=== PATIENT | male | born 1935 | race Caucasian/White ===

== ENCOUNTER 2016-05-06 16:48 | Inpatient (IN) | payer MEDICARE, OTHER ==
[~2016-05-06] VITALS: Ht 182.9 cm; Wt 60.2 kg
[~2016-05-06 16:48] MED LIST: CIPR-9 PO; MIRA33504 PO; TAMS5CAP PO; Z.0.NO CURRENT MEDS
[2016-05-06 16:49] VITALS: BP 210/91; PULSE 92; RESP 24; TEMP 97.5; O2SAT 97
[2016-05-06] MEDS ORDERED: SOD PHOSPHATE/SOD BIPHOSPHATE (ADULT) ENEMA 133ML PR ONE (22:30)
[2016-05-06 22:40] VITALS: BP 196/88; PULSE 98; RESP 16; O2SAT 100
--- NOTE | 2016-05-06 22:44 | PD ---
HPI Chief Complaint: Complaint Time Seen by Provider: 22:25 Travel History International Travel<30 days: No Contact w/Intl Traveler<30days: No Traveled to known affect area: No History of Present Illness HPI This is a 81-year-old male who presents for evaluation of constipation, urinary retention. Symptoms of an ongoing for the past 5-6 days. He reports that occasionally some bowel fluid leaks beyond that he has had no solid bowel movements in the past several days. He has had no urinary output. He does endorse some suprapubic pain and distention secondary to the retention. He denies any fevers, chills, nausea or vomiting, chest pain, shortness of breath, dysuria. The patient was seen here yesterday for evaluation of these symptoms. At that point in time a Degroot catheter is placed and 1.5 L of urine was collected. CT of the abdomen and pelvis revealed a probable 4 mm distal right ureteral calculus with mild right hydronephrosis and prominence of the proximal ureter. There is also a large amount of stool in the distal colon indicating constipation. The patient was discharged with a prescriptions for MiraLAX, Cipro and Flomax however he has been unable to afford them. Symptoms have persisted and he has not had any bowel movements or urine output today which prompted her evaluation. He says that he was recently released from longterm and he has no insurance, no outpatient follow-up. He is currently on probation. He has no other complaints. PFSH Past Medical History Arthritis: Yes Asthma: No Autoimmune Disease: No Blood Disorders: No Heart Rhythm Problems: No High Cholesterol: Yes Chest Pain: Yes Congestive Heart Failure: No COPD: Yes Cerebrovascular Accident: No Diabetes: No Gastrointestinal Disorders: Yes (TROUBLE SWALLOWING - DYSPHAGIA) GERD: Yes Headaches: No Hepatitis: No Hiatal Hernia: Yes Hypertension: Yes Neurologic: No Respiratory: Yes (emphysema ) Myocardial Infarction: Yes ([id number]) Seizures: No Sickle Cell Disease: No Sleep Apnea: No Ulcer: Yes (ESOPHAGEAL ULCERS - 1992) Past Surgical History Abdominal Surgery: No AICD: No Cardiac Surgery: No Ear Surgery: No Endocrine Surgery: No Eye Surgery: No Genitourinary Surgery: No Gynecologic Surgery: No Oral Surgery: Yes (JAW REPAIR ) Pacemaker: No Thoracic Surgery: No Other Surgery: Yes (ULCERS REMOVED FROM ESOPHAGUS 1992, POLYPS REMOVED FROM COLON 1992) Social History Alcohol Use: Yes (HARD LIQUOR - 1/5 DAILY 10 YEARS AGO. NOW OCCASSIONALLY.) Tobacco Use: Yes (SMOKE CIGARRETTES 1 PPD X 30 YEARS - SMOKES 3 TO 4 CIGARETTES DAILY NOW.) Substance Use: No Allergies-Medications (Allergen,Severity, Reaction): Coded Allergies: No Known Allergies (Verified , 05/06/16) Reported Meds & Prescriptions Reported Meds & Active Scripts Active Miralax Powder (Polyethylene Glycol 3350 Powder) 17 Gm Powd 17 Gm PO DAILY Mix and dissolve one measuring cap-ful (17 grams) in water or juice. Cipro (Ciprofloxacin HCl) 500 Mg Tab 500 Mg PO BID 7 Days Flomax (Tamsulosin HCl) 0.4 Mg Cap 0.4 Mg PO HS Review of Systems Except as stated in HPI: all other systems reviewed are Neg Physical Exam Narrative GENERAL: Well-developed well-nourished male in no acute distress SKIN: Warm and dry. HEAD: Atraumatic. Normocephalic. EYES: Pupils equal and round. No scleral icterus. No injection or drainage. ENT: No nasal bleeding or discharge. Mucous membranes pink and moist. NECK: Trachea midline. No JVD. CARDIOVASCULAR: Regular rate and rhythm. No murmur appreciated. RESPIRATORY: No accessory muscle use. Clear to auscultation. Breath sounds equal bilaterally. GASTROINTESTINAL: Abdomen soft, there is some suprapubic distention with tenderness. No guarding. No CVA tenderness. Rectal examination reveals large fecal impaction in the rectal vault, some leakage of bowel fluid around the impaction. The impaction was partially disimpacted manually. MUSCULOSKELETAL: No obvious deformities. No edema. NEUROLOGICAL: Awake and alert. No obvious cranial nerve deficits. Motor grossly within normal limits. Normal speech. Data Data Last Documented VS Vital Signs Date Time Temp Pulse Resp B/P Pulse Ox O2 Delivery O2 Flow Rate FiO2 05/06/16 22:40 98 16 196/88 100 Room Air 05/06/16 16:49 97.5 Orders Fleets Enema (Adult) (Fleets Enema (Adul (05/06/16 22:30) Insert Temp Sensing Degroot Cath (05/06/16 22:21) Urinalysis - C+S If Indicated (05/06/16 22:25) Basic Metabolic Panel (Bmp) (05/06/16 22:29) Complete Blood Count With Diff (05/06/16 22:29) Abdomen, Kub Only (05/06/16 22:29) Sodium Chlor 0.9% 1000 Ml Inj (Ns 1000 M (05/06/16 23:00) MDM Medical Decision Making Medical Screen Exam Complete: Yes Emergency Medical Condition: Yes Medical Record Reviewed: Yes Differential Diagnosis Fecal impaction, constipation, urinary retention, obstructive uropathy, hydronephrosis, ureteral calculus Narrative Course 81-year-old male presents with 5-6 days of urinary retention, constipation, thorough workup performed yesterday revealing constipation, right 4 mm ureteral stone with hydronephrosis. He was unable to afford the medications that were prescribed. On examination he has a fecal impacted that was partially disimpacted manually. The patient will be given a fleets enema. The patient has obvious distention of the bladder on initial examination. Therefore Degroot catheter replaced. A KUB has been ordered as well as electrolytes, renal function, CBC. The patient will be reassessed after the administration of Fleet 's enema. After the placement of Degroot catheter over 1 L of dark red tinged urine was expressed. The patient reports symptomatic relief and his abdominal discomfort , distention. 2256: At the end of my shift the patient is being signed out to Dr. Brice pending lab work, KUB, enema, plan is for discharge with outpatient follow-up to urology versus admission for observation. Neri Macedo May 06, 2016 22:44
[2016-05-06] MEDS ORDERED: SODIUM CHLOR 0.9% 1000 ML INJ 1,000 ML IV ONE (23:00)
[2016-05-06 23:11] VITALS: BP 158/76; PULSE 98; RESP 16; O2SAT 100
[2016-05-06 23:14] LABS: AUTOMATED NEUTROPHIL # 14.9 TH/MM3 (1.8-7.7); BACTERIA, URINE OCC /hpf; BASOPHIL % 0.2 % (0.0-2.0); BLOOD, URINE LARGE (NEG); COMMENT (UR) CULTURE INDICATED; CULTURE IF INDICATED CULTURE INDICATED; GLUCOSE,URINE TRACE mg/dL (NEG); HEMATOCRIT 35.9 % (39.0-51.0); HEMO FLAGS DIFF FINAL; KETONE, URINE NEG (NEG); LYMPH % 10.1 % (9.0-44.0); LYMPHOCYTE # 1.9 TH/MM3 (1.0-4.8); MEAN CELL VOLUME 84.1 FL (80.0-100.0); MEAN CORPUSCULAR HEMOGLOBIN 28.2 PG (27.0-34.0); MEAN CORPUSCULAR HGB CONC 33.5 % (32.0-36.0); MONO % 9.9 % (0.0-8.0); NEUT % 79.8 % (16.0-70.0); NITRITE,URINE NEG (NEG); PLATELET COUNT 232 TH/MM3 (150-450); RED BLOOD COUNT 4.27 MIL/MM3 (4.50-5.90); RED CELL DISTRIBUTION WIDTH 14.4 % (11.6-17.2); URINE COLOR RED (YELLW/STRAW); WHITE BLOOD COUNT 18.7 TH/MM3 (4.0-11.0)
[2016-05-06 23:29] LABS: BICARBONATE 21.5 MEQ/L (21.0-32.0); POTASSIUM 4.4 MEQ/L (3.5-5.1)
--- NOTE | 2016-05-06 23:36 | RADRPT ---
EXAM DATE/TIME: 05/06/2016 23:22 [facility] COMPARISON: CT ABDOMEN & PELVIS W/O CONTRAST, May 06, 2016, 4:41. INDICATIONS : Right flank pain from known right ureteral calculus. MEDICAL HISTORY : Hypertension. Cardiovascular disease. Gastroesophageal reflux disease. SURGICAL HISTORY : CABG. Hip arthroplasty ENCOUNTER: Subsequent ACUITY: 1 day PAIN SCORE: 8/10 LOCATION: Right flank FINDINGS: Supine view of the abdomen was performed. The abdominal bowel gas pattern is normal. No abnormal ma sses, calcifications, or organomegaly is seen. The patient is status post right hip arthroplasty. The bony structures are otherwise intact. CONCLUSION: No definite renal or ureteral calculi identified. Reji Ballesteros MD on May 06, 2016 at 23:33 Board Certified Radiologist. This report was verified electronically.
[2016-05-06] MEDS ORDERED: cefTRIAXone INJ 1,000 MG in SODIUM CHLORIDE 0.9% INJ 100 ML IV ONE (23:45)
--- NOTE | 2016-05-06 23:45 | PD ---
Physical Exam Narrative GENERAL: Well-nourished, well-developed patient. SKIN: Warm and dry. HEAD: Normocephalic and atraumatic. EYES: No injection or drainage. ENT: No nasal drainage noted. NECK: Supple, trachea midline. CARDIOVASCULAR: Regular rate and rhythm RESPIRATORY:no increased effort. No accessory muscle use. NEUROLOGICAL: Awake and alert. Moves all extremities. Normal speech. Data Data Last Documented VS Vital Signs Date Time Temp Pulse Resp B/P Pulse Ox O2 Delivery O2 Flow Rate FiO2 05/06/16 23:11 98 16 158/76 100 Room Air 05/06/16 16:49 97.5 Orders Fleets Enema (Adult) (Fleets Enema (Adul (05/06/16 22:30) Urinalysis - C+S If Indicated (05/06/16 22:25) Basic Metabolic Panel (Bmp) (05/06/16 22:29) Complete Blood Count With Diff (05/06/16 22:29) Abdomen, Kub Only (05/06/16 22:29) Sodium Chlor 0.9% 1000 Ml Inj (Ns 1000 M (05/06/16 23:00) Urinary Catheter Insert/Apply (05/06/16 22:58) Urine Culture (05/06/16 22:50) Blood Culture (05/06/16 23:41) Ceftriaxone Inj (Rocephin Inj) (05/06/16 23:45) Lactic Acid (05/06/16 23:42) Admit Order (Ed Use Only) (05/06/16 23:55) Labs Laboratory Tests Test 05/06/16 05/06/16 22:50 23:35 White Blood Count 18.7 TH/MM3 Red Blood Count 4.27 MIL/MM3 Hemoglobin 12.0 GM/DL Hematocrit 35.9 % Mean Corpuscular Volume 84.1 FL Mean Corpuscular Hemoglobin 28.2 PG Mean Corpuscular Hemoglobin 33.5 % Concent Red Cell Distribution Width 14.4 % Platelet Count 232 TH/MM3 Mean Platelet Volume 10.0 FL Neutrophils (%) (Auto) 79.8 % Lymphocytes (%) (Auto) 10.1 % Monocytes (%) (Auto) 9.9 % Eosinophils (%) (Auto) 0.0 % Basophils (%) (Auto) 0.2 % Neutrophils # (Auto) 14.9 TH/MM3 Lymphocytes # (Auto) 1.9 TH/MM3 Monocytes # (Auto) 1.9 TH/MM3 Eosinophils # (Auto) 0.0 TH/MM3 Basophils # (Auto) 0.0 TH/MM3 CBC Comment DIFF FINAL Differential Comment Urine Color RED Urine Turbidity HAZY Urine pH 6.0 Urine Specific [place] 1.010 Urine Protein 100 mg/dL Urine Glucose (UA) TRACE mg/dL Urine Ketones NEG mg/dL Urine Occult Blood LARGE Urine Nitrite NEG Urine Bilirubin NEG Urine Urobilinogen LESS THAN 2.0 MG/DL Urine Leukocyte Esterase SMALL Urine RBC /hpf Urine WBC 34 /hpf Urine Amorphous Sediment RARE Urine Bacteria OCC /hpf Microscopic Urinalysis Comment CULTURE INDICATED Sodium Level 132 MEQ/L Potassium Level 4.4 MEQ/L Chloride Level 102 MEQ/L Carbon Dioxide Level 21.5 MEQ/L Anion Gap 9 MEQ/L Blood Urea Nitrogen 16 MG/DL Creatinine 0.95 MG/DL Estimat Glomerular Filtration 76 ML/MIN Rate Random Glucose 170 MG/DL Calcium Level 9.0 MG/DL Lactic Acid Level 1.2 mmol/L MDM Supervised Visit with JAIR: Yes Interpretation(s) CBC & BMP Diagram 05/06/16 22:50 kub no stone noted ua with signs of infection Narrative Course I, Dr. felton, have reviewed the advance practice practitioner's documentation and am in agreement, met with the patient face to face, made the diagnosis, and the medical decision making was done by me. *My assessment and Findings: 81-year-old male presents with continued urinary retention and constipation and unable to fill his medications. Workup reveals elevated white count and persistent infection. Cultures and lactate added on. He will be given IV antibiotics. We'll place in observation given age and early sepsis to make sure antibiotic is appropriate, patient had over a liter with Degroot placed that is grossly bloody, patient updated and agrees to admit Sepsis Criteria SIRS Criteria (2 or more): Heart rate over 90, WBC > 46624, < 4000 or > 10% bands Sepsis Criteria (SIRS+source): Infect source susp/known Physician Communication Physician Communication dr rivero agrees to admit Diagnosis Primary Impression: Sepsis Additional Impressions: UTI (urinary tract infection) Urinary retention Constipation Hematuria Kidney stone Admitting Information Admitting Physician Requests: Admit Beverley Felton MD May 06, 2016 23:45 Additional Impressions: UTI (urinary tract infection) Urinary retention Constipation Hematuria Kidney stone Admitting Information Admitting Physician Requests: Admit Beverley Felton MD May 06, 2016 23:45
[2016-05-07] MEDS ORDERED: SODIUM CHLORIDE 0.9% FLUSH 5 ML FLUSH FLUSH PRN (00:15)
[2016-05-07] MEDS ORDERED: BISACODYL EC 5 MG TABEC PO PRN (00:15)
[2016-05-07] MEDS ORDERED: NALOXONE HCL 0.4 MG/ML AMP IV PRN (00:15)
[2016-05-07] MEDS ORDERED: METO25TA3 PO (00:25)
[2016-05-07] MEDS ORDERED: METF500T PO (00:25)
[2016-05-07] MEDS ORDERED: GLUCAGON 1 MG/ML VIAL OTHER PRN (02:00)
[2016-05-07] MEDS ORDERED: DEXTROSE 50% IN WATER 50 ML VIAL(D50) IV PUSH PRN (02:00)
[2016-05-07 02:30] VITALS: BP 170/77; PULSE 90; RESP 16; O2SAT 100
[2016-05-07 04:17] VITALS: BP 167/76; PULSE 97; RESP 16; TEMP 99.4; O2SAT 99
[2016-05-07] MEDS: INSULIN ASPART SUPPLEMENTAL SCALE SQ SCH ×4 (05:43→21:00)
--- NOTE | 2016-05-07 06:10 | HHI.HP ---
[facility] Primary [facility] Physician Unknown Admission Diagnosis sepsis, uti, urinary retention Diagnoses: Chief Complaint: CANNOT urinate, cannot make bowel movements Travel History International Travel<30 Days: No Contact w/Intl Traveler <30 Da: No Traveled to Known Affected Are: No Sepsis Criteria SIRS Criteria (2 or more): Heart rate over 90, WBC > 19878, < 4000 or > 10% bands Sepsis Criteria (SIRS+source): Infect source susp/known Criteria Outcome: Meets sepsis criteria History of Present Illness History from patient, ER physician communication, interview of medical records. Patient reported that for the past 6 days, he really was not able to urinate well. He was also constipated for 6 days. He reports he came to emergency room the day before yesterday and Degroot catheter was placed. However he reports that this catheter was removed prior to him leaving. Last night, patient returns to emergency room without a Degroot catheter. He was complaining of urinary retention and constipation. Therefore a new Degroot catheter was placed in ER. As per ER report and on review of medical records, patient was at our emergency room on religion instructor of May 06, 2016. He did have a CT imaging studies done which revealed obstructive uropathy with renal stones. He also had Degroot catheter placed after multiple attempts and did have hematuria then because of this traumatic Degroot. He was discharged home with a follow-up urology appointment. He was also treated for constipation at that time with laxatives. Patient states that he never had similar symptoms. He reports he did have colonoscopy previously but he cannot remember one or the results of it. He thinks that there was some abnormalities. He reports he was in half-way for the past 8 or 9 years. He just got out of half-way last month. Patient himself denies fever at home. However is noted to have low-grade fever here with leukocytosis, tachycardia. Review of Systems Constitutional: COMPLAINS OF: Weight loss, DENIES: Diaphoretic episodes, Fatigue, Fever, Weight gain, Chills, Dizziness Endocrine: DENIES: Heat/cold intolerance Eyes: DENIES: Blurred vision, Eye pain Respiratory: COMPLAINS OF: Apneas, DENIES: Cough, Snoring, Wheezing, Hemoptysis, Sputum production, Shortness of breath Cardiovascular: COMPLAINS OF: Claudication, DENIES: Chest pain, Palpitations, Syncope, Dyspnea on Exertion, PND, Lower Extremity Edema, Orthopnea Gastrointestinal: DENIES: Abdominal pain, Black stools, Bloody stools, Constipation, Diarrhea, Nausea, Vomiting Musculoskeletal: COMPLAINS OF: Joint pain, Back pain, Neck pain, DENIES: Muscle aches, Stiffness, Joint Swelling Neurologic: DENIES: Abnormal gait, Headache, Localized weakness, Paresthesias, Speech Problems, Tremor Psychiatric: COMPLAINS OF: Anxiety, Confusion Past Family Social History Past Medical History Hypertension Diabetes Hyperlipidemia COPD Cardiac valve Replacementpatient does not know what valve. Chronic kidney diseasestage III CADby angiogram findings in 2003. Patient was advised for bypass at that time per notes. However patient states he only had felt replacement. He is not aware of bypass surgeries. Past Surgical History Cardiac valve replacements Right hip replacement Reported Medications Patient's medications listed in EMR reviewed. Allergies: Coded Allergies: No Known Allergies (Verified , 05/06/16) Family History Family history in mother with lung cancer Social History Denies any alcohol abuse or drug abuse. He quit about 6 months before getting released from half-way. He however restarted picking up smoking. Patient is not taking any medications at home. Physical Exam Vital Signs Vital Signs Date Time Temp Pulse Resp B/P Pulse Ox O2 Delivery O2 Flow Rate FiO2 05/07/16 04:17 99.4 97 16 167/76 99 05/07/16 02:30 90 16 170/77 100 Room Air 05/06/16 23:11 98 16 158/76 100 Room Air 05/06/16 22:40 98 16 196/88 100 Room Air 05/06/16 16:49 97.5 92 24 210/91 97 Room Air Physical Exam GENERAL: This is a well-nourished, well-developed patient, in no apparent distress. SKIN: No rashes, ecchymoses or lesions. Cool and dry. HEAD: Atraumatic. Normocephalic. No temporal or scalp tenderness. EYES: No scleral icterus. No injection or drainage. ENT: Nose without bleeding, purulent drainage or septal hematoma. Airway patent. NECK: Trachea midline. No JVD CARDIOVASCULAR: Regular rate and rhythm without murmurs, gallops, or rubs. RESPIRATORY: Clear to auscultation. Breath sounds equal bilaterally. No wheezes , rales, or rhonchi. GASTROINTESTINAL: Abdomen soft, non-tender, nondistended. No guarding. MUSCULOSKELETAL: Extremities without clubbing, cyanosis, or edema. No calf tenderness. NEUROLOGICAL: Awake and alert.. Normal speech. Laboratory Laboratory Tests Test 05/06/16 05/06/16 22:50 23:35 White Blood Count 18.7 Red Blood Count 4.27 Hemoglobin 12.0 Hematocrit 35.9 Mean Corpuscular Volume 84.1 Mean Corpuscular Hemoglobin 28.2 Mean Corpuscular Hemoglobin 33.5 Concent Red Cell Distribution Width 14.4 Platelet Count 232 Mean Platelet Volume 10.0 Neutrophils (%) (Auto) 79.8 Lymphocytes (%) (Auto) 10.1 Monocytes (%) (Auto) 9.9 Eosinophils (%) (Auto) 0.0 Basophils (%) (Auto) 0.2 Neutrophils # (Auto) 14.9 Lymphocytes # (Auto) 1.9 Monocytes # (Auto) 1.9 Eosinophils # (Auto) 0.0 Basophils # (Auto) 0.0 CBC Comment DIFF FINAL Differential Comment Urine Color RED Urine Turbidity HAZY Urine pH 6.0 Urine Specific [place] 1.010 Urine Protein 100 Urine Glucose (UA) TRACE Urine Ketones NEG Urine Occult Blood LARGE Urine Nitrite NEG Urine Bilirubin NEG Urine Urobilinogen LESS THAN 2.0 Urine Leukocyte Esterase SMALL Urine RBC Urine WBC 34 Urine Amorphous Sediment RARE Urine Bacteria OCC Microscopic Urinalysis Comment CULTURE INDICATED Sodium Level 132 Potassium Level 4.4 Chloride Level 102 Carbon Dioxide Level 21.5 Anion Gap 9 Blood Urea Nitrogen 16 Creatinine 0.95 Estimat Glomerular Filtration 76 Rate Random Glucose 170 Calcium Level 9.0 Lactic Acid Level 1.2 Date/Time Procedure Status Source Growth 05/06/16 23:55 Aerobic Blood Culture Received Blood Peripheral Pending 05/06/16 23:55 Anaerobic Blood Culture Received Blood Peripheral Pending 05/06/16 22:50 Urine Culture Received Urine Clean Catch Pending Result Diagram: 05/06/16224905/06/16 225 Imaging Last 72 hours Impressions Abdomen X-Ray 05/06/162228 Signed Impressions: Service Date/Time: Friday, May 06, 2016 23:22 - CONCLUSION: No definite renal or ureteral calculi identified. Reji Ballesteros MD Last 48 hours Impressions Abdomen X-Ray 05/06/16 [id number] Signed Impressions: Service Date/Time: Friday, May 06, 2016 23:22 - CONCLUSION: No definite renal or ureteral calculi identified. Reji Ballesteros MD Assessment and Plan Problem List: (1) Sepsis ICD Code: A41.9 Status: Acute (2) UTI (urinary tract infection) ICD Code: N39.0 Status: Acute (3) Urinary retention ICD Code: R33.9 Status: Acute (4) Constipation ICD Code: K59.00 Status: Acute (5) Hematuria ICD Code: R31.9 Status: Acute (6) Kidney stone ICD Code: N20.0 Status: Acute (7) Kidney cyst, acquired ICD Code: N28.1 Status: Acute Assessment and Plan Impression: Acute urinary retentionlikely due to obstructive uropathy from renal stone 4 mm distal right ureteral stone above UVJ.With mild hydronephrosis. Bilateral renal cyst extending of the lower pole of the kidneys. Hematuriatraumatic Degroot likely Severe constipation UTI. Sepsisby criteria Hypertension Diabetes Hyperlipidemia COPD Cardiac valve Replacementpatient does not know what valve. CADby angiogram findings in 2003. Patient was advised for bypass at that time per notes. However patient states he only had felt replacement. He is not aware of bypass surgeries. Plan: Degroot catheter was placed. Urology consult. Flomax. Patient received Rocephin in ER. Continue Rocephin 1 g IV every 12 hours. Next and will follow-up urine culture results. Follow blood culture results. Nothing by mouth. D5 half normal saline at 84 cc per hour. We'll monitor fingersticks. Watch for fluid overload. Treat constipation with laxatives. Would consult GI for severe constipation and also possibly workup for weight loss with this constipation. Patient reports of abnormal colonoscopy previously. DVT prophylaxiswith SCD. Discussed Condition With Patient, ER physician, patient's nurse Physician Certification 2 Midnight Certification Type: Admission for Inpatient Services Order for Inpatient Services The services are ordered in accordance with Medicare regulations or non- Medicare payer requirements, as applicable. In the case of services not specified as inpatient-only, they are appropriately provided as inpatient services in accordance with the 2-midnight benchmark. Estimated LOS (days): 2 days is the estimated time the patient will need to remain in the hospital, assuming treatment plan goals are met and no additional complications. Post-Hospital Plan: Home Arvind Milian MD May 07, 2016 06:10
[2016-05-07] MEDS ORDERED: SOD PHOSPHATE/SOD BIPHOSPHATE (ADULT) ENEMA 133ML PR ONE (06:15)
[2016-05-07] MEDS ORDERED: DEXT 5%-NACL 0.45% 1000 ML INJ 1,000 ML IV SCH (07:15)
[2016-05-07 08:12] VITALS: BP 163/79; PULSE 108; RESP 20; TEMP 96.4; O2SAT 96
[2016-05-07] MEDS: cefTRIAXone INJ 1,000 MG in SODIUM CHLORIDE 0.9% INJ 100 ML IV SCH ×2 (08:39→20:00)
[2016-05-07] MEDS: SODIUM CHLORIDE 0.9% FLUSH 5 ML FLUSH FLUSH SCH ×2 (09:00→20:00)
[2016-05-07 09:30] VITALS: PULSE 112
[2016-05-07 12:33] VITALS: BP 148/76; PULSE 90; RESP 20; TEMP 97.9; O2SAT 96
--- NOTE | 2016-05-07 16:05 | RADRPT ---
EXAM DATE/TIME: 05/07/2016 14:52 [facility] COMPARISON: No previous studies available for comparison. INDICATIONS : CT showed hydronephrosis. MEDICAL HISTORY : Chronic obstructive pulmonary disease. Hypercholesterolemia. Hypertension. Emphysema. Dysphagia. Esop hageal ulcers. Hiatal hernia. Gastroesophageal reflux disease. Kidney stones. Arthritis. Diabetes. Th orasic degenerative joint disease. Anxiety. SURGICAL HISTORY : Right hip replacement. ENCOUNTER: Initial ACUITY: 2 days PAIN SCORE: 0/10 LOCATION: Bilateral flank MEASUREMENTS: RIGHT KIDNEY: 10.4 x 5.3 x 4.2 cm LEFT KIDNEY: 9.5 x 4.5 x 4.8 cm FINDINGS: RIGHT KIDNEY: Renal cortex is normal in thickness and echotexture. No hydronephrosis, stone, or mass. There is a cyst along the lower pole measuring 2.2 cm. There is a cyst along the upper pole measuring 1.9 cm. LEFT KIDNEY: Renal cortex is normal in thickness and echotexture. No hydronephrosis, stone, or mass. There is a cyst along the lower pole measuring 1.5 cm. BLADDER: Decompressed. Degroot catheter in place. CONCLUSION: 1. No evidence of hydronephrosis. 2. Bilateral benign-appearing renal cysts. Juancho Carson MD on May 07, 2016 at 16:02 Board Certified Radiologist. This report was verified electronically.
--- NOTE | 2016-05-07 17:07 | MB ---
cc: JOSHUA JOHNSTON MD DATE OF CONSULTATION 05/07/16 REASON FOR CONSULTATION 1. Urinary retention 2. Renal cysts. 3. Possible right ureteral stone. HISTORY OF PRESENT ILLNESS The patient is a 81-year-old male who came to the emergency room yesterday evening with inability to urinate for the last 6 days. He came into the emergency room the day before last with the same complaints and had a traumatic Degroot catheter was placed. His bladder was drained and the catheter was removed. However, over the course of the next 24 hours he had lower abdominal pain and tried to start his stream but could not. He would just dribble from time to time. He came back to the ER last night where catheter was then replaced and approximate 1.5 liters of urine was drained. He also has developed severe constipation over the last six days which required him to be manually disimpacted. In discussion with Mr. Meneses, he states that he has had some trouble urinating over the last couple years. He has nocturia about four to five times, weak stream and occasional dysuria. He denies history of hematuria or incontinence. He denies ever taking medications for his urinary symptoms in the past. On his first presentation to the emergency room two days ago, he had a CT abdomen and pelvis without contrast done which showed a severely distended rectum as well as a hyperdense cyst on his left kidney approximately 1.5 cm in size as well as dilated extrarenal pelvis on the right side with a questionable 4 mm distal right ureteral stone and the above mentioned distended bladder. He denies history of kidney stones in the past. He currently denies any flank pain, fevers or chills at this time. Catheter is currently in place and draining light yellow urine. He denies history of prostate cancer. He denies nausea and vomiting this time. He did receive a Fleets enema last night and has had a small bowel movement, but he has not had a bowel movement today. REVIEW OF SYSTEMS See HPI. Otherwise, a 12-point review of systems was performed and otherwise negative. PAST MEDICAL HISTORY 1. Hypertension, 2. Diabetes, 3. Hyperlipidemia 4. COPD 5. Urinary retention 6. ____ 7. Renal cyst. PAST SURGICAL HISTORY 1. Status post cardiac valve replacement 2. Status post right hip replacement. ALLERGIES NO KNOWN DRUG ALLERGIES. FAMILY HISTORY Mom had lung cancer. Denies history of urolithiasis or family history of prostate cancer. SOCIAL HISTORY Denies any alcohol or illicit drug use. He uses tobacco. He recently just got out of longterm. MEDICATIONS Home include 1. Metformin 500 mg p.o. daily. 2. Metoprolol 25 mg p.o. b.i.d. PHYSICAL EXAMINATION VITAL SIGNS: Temperature 97.9, pulse 90, respiratory rate 20, blood pressure 148/76, satting 96% on room air. GENERAL: He is alert and oriented x3. No apparent distress. He appears older than his stated age. HEAD: Normocephalic, atraumatic. EYES: No scleral icterus. Extraocular muscles intact. NECK: Supple. Trachea is midline. LUNGS: Clear to auscultation bilaterally HEART: Regular rhythm. No murmurs or gallops or rubs. ABDOMEN: Soft, nontender, mildly distended. No peritoneal signs. GENITOURINARY:: His penis is uncircumcised. Testes descended bilaterally. Normal size and consistency. Catheter is draining nura colored urine. Prostate exam not indicated at this time. EXTREMITIES: Nontender, no clubbing, cyanosis or edema. MUSCULOSKELETAL: Full range of motion times four extremities. SKIN: No ulcers or rashes. PSYCHIATRIC: Appears anxious. LABORATORY DATA White count 18.7, hemoglobin 12.0, hematocrit 35.9, platelet count 232. Sodium 1.32, potassium 4.4, chloride 102, bicarb 21.5 BUN 16, creatinine 0.95, glucose 170. His urine was large occult blood, small leukocyte esterase. IMAGING STUDIES CT abdomen and pelvis without contrast on 05/05/2016 showed a severely distended rectum and moderately distended bladder with a 1.5 cm posterior left hyperdense renal cyst as well as a dilated extrarenal pelvis with a questionable 4 mm stone in his right distal ureter. ASSESSMENT AND PLAN The patient is a 81-year-old male who presents with severe constipation and acute urinary retention with a 1.5 cm left renal cyst and questionable ____ distal ureter calculus. PLAN Continue the Degroot catheter for now, minimum x1 week and until his constipation is resolved. Continue Flomax 0.4 mg daily. We will obtain a renal ultrasound to further characterize the cyst and to evaluate for hydronephrosis on the right side. He can then be of void trialed on an outpatient basis. Thank you for this consultation. Please call if any questions. MD ANNE MARIE Carrion/ /2:14 PM /4:42 PM
[2016-05-07] MEDS ORDERED: MAGNESIUM HYDROXIDE SUSP 30 ML CUP PO ONE (18:00)
[2016-05-07 20:00] VITALS: BP 182/74; PULSE 77; RESP 22; TEMP 98.3; O2SAT 97
[2016-05-07] MEDS: TAMSULOSIN HCL 0.4 MG CAP PO SCH (20:00)
[2016-05-07] MEDS ORDERED: MINERAL OIL ENEMA 118 ML BTL RECTAL ONE (21:45)
[2016-05-07] MEDS ORDERED: DICYCLOMINE HCL 20 MG TAB PO ONE (22:00)
[2016-05-08] MEDS: INSULIN ASPART SUPPLEMENTAL SCALE SQ SCH ×4 (05:36→21:00)
[2016-05-08 06:13] VITALS: BP 160/75; PULSE 85; RESP 20; TEMP 96.5; O2SAT 97
[2016-05-08 06:59] LABS: AUTOMATED NEUTROPHIL # 7.1 TH/MM3 (1.8-7.7); BASOPHIL % 0.3 % (0.0-2.0); EOSINOPHIL # 0.1 TH/MM3 (0-0.4); EOSINOPHIL % 0.8 % (0.0-4.0); HEMATOCRIT 33.1 % (39.0-51.0); HEMO FLAGS DIFF FINAL; LYMPH % 20.1 % (9.0-44.0); LYMPHOCYTE # 2.1 TH/MM3 (1.0-4.8); MEAN CELL VOLUME 84.2 FL (80.0-100.0); MEAN CORPUSCULAR HEMOGLOBIN 28.4 PG (27.0-34.0); MEAN CORPUSCULAR HGB CONC 33.8 % (32.0-36.0); MONO % 11.4 % (0.0-8.0); NEUT % 67.4 % (16.0-70.0); PLATELET COUNT 203 TH/MM3 (150-450); RED BLOOD COUNT 3.93 MIL/MM3 (4.50-5.90); RED CELL DISTRIBUTION WIDTH 14.4 % (11.6-17.2); WHITE BLOOD COUNT 10.5 TH/MM3 (4.0-11.0)
[2016-05-08 07:32] LABS: BICARBONATE 21.2 MEQ/L (21.0-32.0); POTASSIUM 3.9 MEQ/L (3.5-5.1)
[2016-05-08 08:00] VITALS: BP 157/71; PULSE 70; RESP 15; TEMP 97.2; O2SAT 99
[2016-05-08] MEDS: cefTRIAXone INJ 1,000 MG in SODIUM CHLORIDE 0.9% INJ 100 ML IV SCH (08:29)
[2016-05-08] MEDS: POLYETHYLENE GLYCOL 17 GM PKG PO SCH (08:30)
[2016-05-08] MEDS: SODIUM CHLORIDE 0.9% FLUSH 5 ML FLUSH FLUSH SCH ×2 (08:36→21:25)
[2016-05-08 12:00] VITALS: BP 139/66; PULSE 95; RESP 15; TEMP 96.9; O2SAT 96
--- NOTE | 2016-05-08 12:52 | HHI.PR ---
Subjective Remarks Patient reports that he is still having issues with constipation. He has a painful urge but has not been able to have a bowel movement. He is having some liquid smear. He reports mild abdominal cramps. No nausea or vomiting. Objective Vitals Vital Signs Date Time Temp Pulse Resp B/P Pulse Ox O2 Delivery O2 Flow Rate FiO2 05/08/16 08:00 97.2 70 15 157/71 99 05/08/16 06:13 96.5 85 20 160/75 97 05/07/16 20:00 98.3 77 22 182/74 97 I/O 05/07/16 05/07/16 05/07/16 05/08/16 05/08/16 05/08/16 07:00 15:00 23:00 07:00 15:00 23:00 Output Total 1500 ml 2000 ml Balance -1500 ml -2000 ml Output Urine Total 1500 ml 2000 ml # Voids 0 # Bowel Movements 1 0 0 Result Diagram: 05/08/16 0632 05/08/16 0632 Imaging Last Impressions Renal Ultrasound 05/07/16 0000 Signed Impressions: Service Date/Time: April 14:52 - CONCLUSION: 1. No evidence of hydronephrosis. 2. Bilateral benign-appearing renal cysts. Juancho Carson MD Abdomen X-Ray 05/06/169 Signed Impressions: Service Date/Time: Friday, May 06, 2016 23:22 - CONCLUSION: No definite renal or ureteral calculi identified. Reji Ballesteros MD Objective Remarks GENERAL: This is a well-nourished, well-developed patient, in no apparent distress. CARDIOVASCULAR: Normal rate and regular rhythm without murmurs, gallops, or rubs. RESPIRATORY: Good respiratory efforts. Breath sounds equal and clear to auscultation bilaterally. GASTROINTESTINAL: Abdomen soft, mild tenderness to deep palpation diffusely. Normal active bowel sounds. MUSCULOSKELETAL: Extremities without cyanosis, or edema. NEURO: Alert & Oriented x4 to person, place, time, situation. Moves all ext x4 PSYCH: Appropriate mood and affect. A/P Problem List: (1) Sepsis ICD Code: A41.9 Status: Acute (2) UTI (urinary tract infection) ICD Code: N39.0 Status: Acute (3) Urinary retention ICD Code: R33.9 Status: Acute (4) Constipation ICD Code: K59.00 Status: Acute (5) Hematuria ICD Code: R31.9 Status: Acute (6) Kidney stone ICD Code: N20.0 Status: Acute (7) Kidney cyst, acquired ICD Code: N28.1 Status: Acute Assessment and Plan 81-year-old male with: Severe constipation and acute urinary retention: Patient also has a 4 mm distal right ureteral stone above UVJ.With mild hydronephrosis. -Patient had some mild response to an enema. May still have some impacted stool. Will try Lactulose. If no improvement will try enema. Continue Bentyl for abd cramps. -Appreciate urology following. Continue Degroot catheter and have a voiding trial outpatient. Continue Flomax. Abnormal urinalysis: Urine culture is negative. We'll discontinue antibiotics. Sepsis by criteria: Resolved. Urine culture is negative. Discontinue antibiotics. Diabetes: Sliding scale insulin with Accu-Chek. GI prophylaxis: PPI. Stool softener PRN constipation. DVT PPx: SCDs. Hudson Baron MD May 08, 2016 12:52
[2016-05-08] MEDS ORDERED: SOD PHOSPHATE/SOD BIPHOSPHATE (ADULT) ENEMA 133ML PR ONE (13:00)
[2016-05-08] MEDS ORDERED: LACTULOSE SYRUP 20 GM/30 ML CUP PO ONE (13:00)
[2016-05-08 16:00] VITALS: BP 157/71; PULSE 80; RESP 15; TEMP 98.5; O2SAT 100
[2016-05-08 20:00] VITALS: BP 131/76; PULSE 102; PULSE 89; RESP 20; TEMP 97.5; O2SAT 98
[2016-05-08] MEDS: TAMSULOSIN HCL 0.4 MG CAP PO SCH (21:26)
[2016-05-08] MEDS: METOPROLOL TARTRATE 25 MG TAB PO SCH (21:26)
[2016-05-09] VITALS (7 sets, daily range): BP systolic 105–163; BP diastolic 51–81; PULSE 63–90; RESP 14–20; TEMP 96.1–98; O2SAT 96–100
[2016-05-09] MEDS: INSULIN ASPART SUPPLEMENTAL SCALE SQ SCH ×4 (05:28→21:23)
[2016-05-09] MEDS: METOPROLOL TARTRATE 25 MG TAB PO SCH ×2 (08:40→21:23)
[2016-05-09] MEDS: POLYETHYLENE GLYCOL 17 GM PKG PO SCH (08:40)
[2016-05-09] MEDS: SODIUM CHLORIDE 0.9% FLUSH 5 ML FLUSH FLUSH SCH ×2 (09:00→21:22)
[2016-05-09] MEDS ORDERED: LACT10SO PO (15:13)
[2016-05-09] MEDS ORDERED: TAMS5CAP PO (15:13)
--- NOTE | 2016-05-09 15:13 | HHI.DCPOC ---
Discharge Care Plan Diagnosis: (1) Urinary retention (2) Constipation (3) Kidney stone Goals to Promote Your Health * To prevent worsening of your condition and complications * To maintain your health at the optimal level Directions to Meet Your Goals Take your medications as prescribed Follow your dietary instruction Follow activity as directed Keep your appointments as scheduled Take your immunizations and boosters as scheduled If your symptoms worsen call your PCP, if no PCP go to Urgent Care Center or Emergency Room Smoking is Dangerous to Your Health. Avoid second hand smoke Call the 24-hour hour crisis hotline for domestic abuse at Hudson Baron MD May 09, 2016 15:13
--- NOTE | 2016-05-09 15:17 | HHI.FF ---
Face to Face Verification Diagnosis: (1) Urinary retention (2) Constipation (3) Kidney stone Home Health Nursing Order: Medical education Nursing assessment with vital signs Degroot catheter maintenance Insurance Salesperson Order: To Evaluate: Living conditions/environment Order: To Provide: Long range planning I have seen patient Kulwinder Meneses on 05/09/16. My clinical findings support the need for the requested home health care services because: Deconditioned w/ increased weakness Med compliance is questionable Limited ability to care for self I certify that my clinical findings support that this patient is homebound because: Need for psychosocial assistance Hudson Baron MD May 09, 2016 15:17
[2016-05-09] MEDS ORDERED: BENT20TA PO (15:18)
--- NOTE | 2016-05-09 15:18 | HHI.DS ---
Discharge Summary Admission Date May 06, 2016 at 23:56 Admitting Diagnosis sepsis, uti, urinary retention (1) Sepsis ICD Code: A41.9 (2) UTI (urinary tract infection) ICD Code: N39.0 (3) Urinary retention ICD Code: R33.9 (4) Constipation ICD Code: K59.00 (5) Hematuria ICD Code: R31.9 (6) Kidney stone ICD Code: N20.0 (7) Kidney cyst, acquired ICD Code: N28.1 Brief History - From Admission History from patient, ER physician communication, interview of medical records. Patient reported that for the past 6 days, he really was not able to urinate well. He was also constipated for 6 days. He reports he came to emergency room the day before yesterday and Degroot catheter was placed. However he reports that this catheter was removed prior to him leaving. Last night, patient returns to emergency room without a Degroot catheter. He was complaining of urinary retention and constipation. Therefore a new Degroot catheter was placed in ER. As per ER report and on review of medical records, patient was at our emergency room on [employer] of May 06, 2016. He did have a CT imaging studies done which revealed obstructive uropathy with renal stones. He also had Degroot catheter placed after multiple attempts and did have hematuria then because of this traumatic Degroot. He was discharged home with a follow-up urology appointment. He was also treated for constipation at that time with laxatives. Patient states that he never had similar symptoms. He reports he did have colonoscopy previously but he cannot remember one or the results of it. He thinks that there was some abnormalities. 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 He just got out of custodial last month. Patient himself denies fever at home. However is noted to have low-grade fever here with leukocytosis, tachycardia. CBC/BMP: 05/08/16 0632 05/08/16 0632 Significant Findings Laboratory Tests Test 05/06/16 05/08/16 22:50 06:32 White Blood Count 18.7 TH/MM3 (4.0-11.0) Red Blood Count 4.27 MIL/MM3 3.93 MIL/MM3 (4.50-5.90) (4.50-5.90) Hemoglobin 12.0 GM/DL 11.2 GM/DL (13.0-17.0) (13.0-17.0) Hematocrit 35.9 % 33.1 % (39.0-51.0) (39.0-51.0) Neutrophils (%) (Auto) 79.8 % (16.0-70.0) Monocytes (%) (Auto) 9.9 % (0.0-8.0) 11.4 % (0.0-8.0) Neutrophils # (Auto) 14.9 TH/MM3 (1.8-7.7) Monocytes # (Auto) 1.9 TH/MM3 1.2 TH/MM3 (0-0.9) (0-0.9) Urine Color RED (YELLW/STRAW) Urine Turbidity HAZY (CLEAR) Urine Protein 100 mg/dL (NEG-TRACE) Urine Occult Blood LARGE (NEG) Urine Leukocyte Esterase SMALL (NEG) Urine WBC 34 /hpf (0-5) Urine Bacteria OCC /hpf (NONE) Sodium Level 132 MEQ/L (136-145) Estimat Glomerular Filtration 76 ML/MIN (>89) 88 ML/MIN (>89) Rate Random Glucose 170 MG/DL 126 MG/DL (74-106) (74-106) Calcium Level 8.4 MG/DL (8.5-10.1) PE at Discharge GENERAL: This is a well-nourished, well-developed patient, in no apparent distress. CARDIOVASCULAR: Normal rate and regular rhythm without murmurs, gallops, or rubs. RESPIRATORY: Good respiratory efforts. Breath sounds equal and clear to auscultation bilaterally. GASTROINTESTINAL: Abdomen soft, mild tenderness to deep palpation diffusely. Normal active bowel sounds. MUSCULOSKELETAL: Extremities without cyanosis, or edema. NEURO: Alert & Oriented x4 to person, place, time, situation. Moves all ext x4 PSYCH: Appropriate mood and affect. Pt Condition on Discharge: Good Discharge Disposition: Disch w/ Home Health Serv Discharge Instructions DIET: Follow Instructions for: Heart Healthy Diet Activities you can perform: Regular-No Restrictions Hudson Baron MD May 09, 2016 15:18
--- NOTE | 2016-05-09 15:52 | RADRPT ---
EXAM DATE/TIME: 05/09/2016 15:26 [facility] COMPARISON: ABDOMEN KUB ONLY, May 06, 2016, 23:22. INDICATIONS : Constipation for 1 week MEDICAL HISTORY : None. SURGICAL HISTORY : None. ENCOUNTER: Initial ACUITY: 1 week PAIN SCORE: 0/10 LOCATION: Bilateral abdomen FINDINGS: Moderate to large stool seen throughout the colon, slightly decreased in the cecum but slightly incre ased everywhere else. Nonobstructive pattern. No free air seen. CONCLUSION: Moderate to large colonic stool. Nonobstructive pattern. Severino Lakhani MD on May 09, 2016 at 15:50 Board Certified Radiologist. This report was verified electronically.
[2016-05-09] MEDS ORDERED: SOD PHOSPHATE/SOD BIPHOSPHATE (ADULT) ENEMA 133ML PR ONE (17:45)
--- NOTE | 2016-05-09 19:42 | HHI.PR ---
Subjective Remarks Patient continues to report abdominal cramps and the urge to have a bowel movement. KUB shows moderate to large amount of stool in the colon. He reports that he had an abnormal colonoscopy before but he does not remember any details. Objective Vitals Vital Signs Date Time Temp Pulse Resp B/P Pulse Ox O2 Delivery O2 Flow Rate FiO2 05/09/16 16:00 97.6 71 18 142/68 100 05/09/16 16:00 97.6 71 18 142/68 100 05/09/16 12:00 96.4 65 17 163/73 100 05/09/16 11:54 80 05/09/16 08:00 96.1 90 17 105/51 97 05/09/16 05:50 97.4 74 20 146/80 99 05/09/16 00:50 97.5 83 20 159/81 98 05/08/16 20:00 97.5 89 20 131/76 98 05/08/16 20:00 102 I/O 05/08/16 05/08/16 05/08/16 05/09/16 05/09/16 05/09/16 06:59 14:59 22:59 06:59 14:59 22:59 Intake Total 625 ml Output Total 2000 ml 1650 ml 900 ml 1600 ml 3500 ml Balance -2000 ml -1650 ml -900 ml -1600 ml -2875 ml Intake Oral 625 ml Output Urine Total 2000 ml 1650 ml 900 ml 1600 ml 3500 ml # Voids 1 # Bowel Movements 0 0 0 Result Diagram: 05/08/16 0632 05/08/16 0632 Objective Remarks GENERAL: This is a well-nourished, well-developed patient, in no apparent distress. CARDIOVASCULAR: Normal rate and regular rhythm without murmurs, gallops, or rubs. RESPIRATORY: Good respiratory efforts. Breath sounds equal and clear to auscultation bilaterally. GASTROINTESTINAL: Abdomen soft, mild tenderness to deep palpation diffusely. Normal active bowel sounds. MUSCULOSKELETAL: Extremities without cyanosis, or edema. NEURO: Alert & Oriented x4 to person, place, time, situation. Moves all ext x4 PSYCH: Appropriate mood and affect. A/P Problem List: (1) Sepsis ICD Code: A41.9 Status: Acute (2) UTI (urinary tract infection) ICD Code: N39.0 Status: Acute (3) Urinary retention ICD Code: R33.9 Status: Acute (4) Constipation ICD Code: K59.00 Status: Acute (5) Hematuria ICD Code: R31.9 Status: Acute (6) Kidney stone ICD Code: N20.0 Status: Acute (7) Kidney cyst, acquired ICD Code: N28.1 Status: Acute Assessment and Plan 81-year-old male with: Severe constipation and acute urinary retention: Patient also has a 4 mm distal right ureteral stone above UVJ.With mild hydronephrosis. -Patient had some mild response to an enema. May still have some impacted stool. No response Lactulose. Try enema again. Consult GI for assistance. Continue Bentyl for abd cramps. -Appreciate urology following. Continue Degroot catheter and have a voiding trial outpatient. Continue Flomax. Abnormal urinalysis: Urine culture is negative. We'll discontinue antibiotics. Sepsis by criteria: Resolved. Urine culture is negative. Discontinue antibiotics. Diabetes: Sliding scale insulin with Accu-Chek. GI prophylaxis: PPI. Stool softener PRN constipation. DVT PPx: SCDs. Hudson Baron MD May 09, 2016 19:42
[2016-05-09] MEDS: TAMSULOSIN HCL 0.4 MG CAP PO SCH (21:23)
[2016-05-10] VITALS: BP_SYST 125; BP_SYST 133; BP_DIAS 58; BP_DIAS 65; PULSE 52; RESP 16; TEMP 98.6; O2SAT 100
[2016-05-10 04:00] VITALS: BP 139/68; PULSE 88; RESP 18; TEMP 96.9; O2SAT 97
[2016-05-10] MEDS: INSULIN ASPART SUPPLEMENTAL SCALE SQ SCH ×4 (06:44→21:51)
[2016-05-10 08:00] VITALS: BP 146/77; PULSE 90; RESP 19; TEMP 96.5; O2SAT 99
[2016-05-10] MEDS: POLYETHYLENE GLYCOL 17 GM PKG PO SCH (09:12)
[2016-05-10] MEDS: METOPROLOL TARTRATE 25 MG TAB PO SCH ×2 (09:12→21:51)
[2016-05-10] MEDS: SODIUM CHLORIDE 0.9% FLUSH 5 ML FLUSH FLUSH SCH ×2 (09:14→21:51)
[2016-05-10 12:00] VITALS: BP 121/56; PULSE 67; RESP 17; TEMP 97.6; O2SAT 99
--- NOTE | 2016-05-10 13:24 | PD.CONS ---
HPI History of Present Illness This is a 81 year old male admitted with urinary retention requiring a goyal catheter and also has constipation. Denies any previous Hx of constipation, he reports his last BM was about 3 days ago. C/O leaking stool at times and has only been able to have a small amount of stool out after having a fleets enema and lactulose. He denies abdominal pain or N/V, has not had any blood in his stools. He also has CT imaging that showed obstructive uropathy with renal stones. States he had a colonoscopy several years ago and thinks it was abnormal but does not remember the results. Had a stomach surgery for ulcers in the past. He has been in [facility] for the past 8 to 9 years and just was released in March. (Ciera Cifuentes) PFSH Past Medical History Hypertension Diabetes Hx gastric ulcer Hyperlipidemia COPD Cardiac valve Replacementpatient does not know what valve. Chronic kidney diseasestage III CADby angiogram findings in 2003. Patient was advised for bypass at that time per notes. However patient states he only had felt replacement. He is not aware of bypass surgeries. Past Surgical History Cardiac valve replacements Right hip replacement Stomach surgery for an ulcer (Ciera Cifuentes) Coded Allergies: No Known Allergies (Verified , 05/06/16) Medications Reported Meds & Active Scripts Active Bentyl (Dicyclomine HCl) 20 Mg Tab 20 Mg PO TID Lactulose Liq (Lactulose) 10 Gm/15 Ml Soln 30 Ml PO Q6H PRN 30 Days Flomax (Tamsulosin HCl) 0.4 Mg Cap 0.4 Mg PO HS Miralax Powder (Polyethylene Glycol 3350 Powder) 17 Gm Powd 17 Gm PO DAILY Mix and dissolve one measuring cap-ful (17 grams) in water or juice. Cipro (Ciprofloxacin HCl) 500 Mg Tab 500 Mg PO BID 7 Days Reported Metoprolol Tartrate 25 Mg Tab 25 Mg PO BID Metformin (Metformin HCl) 500 Mg Tab 500 Mg PO DAILY With meals Family History Family history in mother with lung cancer Social History Denies any alcohol abuse or drug abuse. He quit about 6 months before getting released from shelter. He however restarted picking up smoking. Patient is not taking any medications at home. (Ciera Cifuentes) Review of Systems Gastrointestinal: COMPLAINS OF: Constipation, DENIES: Nausea, Vomiting, Difficulty Swallowing, Swelling of Abdomen ROS (EsauCiera Damon URBINA) GI Exam Vitals I&O Vital Signs Date Time Temp Pulse Resp B/P Pulse Ox O2 Delivery O2 Flow Rate FiO2 05/10/16 08:00 96.5 90 19 146/77 99 05/10/16 04:00 96.9 88 18 139/68 97 05/10/16 00:00 98.6 52 16 133/65 100 05/10/16 00:00 98.6 52 16 125/58 100 05/09/16 20:00 98.0 63 14 133/65 96 05/09/16 16:00 97.6 71 18 142/68 100 05/09/16 16:00 97.6 71 18 142/68 100 I/O 05/09/16 05/09/16 05/09/16 05/10/16 05/10/16 05/10/16 07:00 15:00 23:00 07:00 15:00 23:00 Intake Total 985 ml Output Total 1600 ml 4650 ml 3500 ml Balance -1600 ml -3665 ml -3500 ml Intake Oral 985 ml Output Urine Total 1600 ml 4650 ml 3500 ml # Voids 1 # Bowel Movements 0 Imaging Last 48 hours Impressions Abdomen X-Ray 05/09/16 0000 Signed Impressions: Service Date/Time: Monday, May 09, 2016 15:26 - CONCLUSION: Moderate to large colonic stool. Nonobstructive pattern. Severino Lakhani MD Laboratory Date/Time Procedure Status Source Growth 05/06/16 23:55 Aerobic Blood Culture - Preliminary Resulted Blood Peripheral NO GROWTH IN 3 DAYS 05/06/16 23:55 Anaerobic Blood Culture - Preliminary Resulted Blood Peripheral NO GROWTH IN 3 DAYS 05/06/16 22:50 Urine Culture - Final Complete Urine Clean Catch NO GROWTH IN 48 HOURS. Physical Examination HEENT: Pupils round and reactive to light; normocephalic; atraumatic; no jaundice. Throat is clear. NECK: Neck is supple, no JVD, no lymphadenopathy. CHEST: Chest is clear to auscultation and percussion. CARDIAC: Regular rate and rhythm with no murmur gallop or rubs. ABDOMEN: Soft, nondistended, nontender; no hepatosplenomegaly; bowel sounds are present in all four quadrants. EXTREMITIES: No clubbing, cyanosis, or edema. SKIN: Normal; no rash; no jaundice. MET[employer] MOCKUP [employer]ER: No focal deficits; alert and oriented times three. (Ciera Cifuentes) Assessment and Plan Assessment: (1) Constipation Plan: Has C/O constipation no BM for at least 3 days despite enemas and Lactulose,having small amount of leaking stools, denies Hx of constipation Plan Abdomen X-Ray 05/09/16 >>Impressions: Monday, May 09, 2016 15:26 - CONCLUSION: Moderate to large colonic stool. Nonobstructive pattern. 81 year old male admitted with urinary retention has evidence of kidney stones and requires an indwelling catheter. Has constipation which and leaking small amount of stool, had Lacutlose and a fleets enema with only small amount of stool. Abdominal xray showed moderate to large colonic stool, no obstruction seen. Kade abdominal pain or N/V.Has a PMH of stomach ulcer requiring a stomach surgery, denies any heartburn or reflux, no hematemesis or melana. Plan -Continue Miralax -Increase fluid intake and activity -Add magnesium Citrate on bottle -Will need a colonoscopy at some point as he has not had a colonoscopy for several years, but if constipation resolves, this can be done as an outpatient -Add Colace daily -Supportive care -Further recommendations to follow Thank you for the consultation Patient was seen and examined by Dr Daniels and myself, this note is written on his behalf. (Ciera Cifuentes) Physician Comments Seen and examined, plan as above, will follow up with you. (Girish Daniels MD) Problem Qualifiers (1) Constipation: Qualified Code: K59.00 - Constipation, unspecified constipation type Ciera Cifuentes May 10, 2016 13:24 Girish Daniels MD May 10, 2016 14:28
[2016-05-10 14:00] VITALS: BP 140/58; PULSE 71; RESP 16; TEMP 96.4; O2SAT 98
[2016-05-10] MEDS ORDERED: MAGNESIUM CITRATE SOLN 300 ML BTL PO ONE (14:15)
--- NOTE | 2016-05-10 14:34 | HHI.PR ---
Subjective Remarks Patient seen and evaluated in follow-up for constipation. No further bowel movements. Patient with urinary Degroot. Plan discussed with [facility] [place] Objective Vitals Vital Signs Date Time Temp Pulse Resp B/P Pulse Ox O2 Delivery O2 Flow Rate FiO2 05/10/16 12:00 97.6 67 17 121/56 99 05/10/16 08:00 96.5 90 19 146/77 99 05/10/16 04:00 96.9 88 18 139/68 97 05/10/16 00:00 98.6 52 16 133/65 100 05/10/16 00:00 98.6 52 16 125/58 100 05/09/16 20:00 98.0 63 14 133/65 96 05/09/16 16:00 97.6 71 18 142/68 100 05/09/16 16:00 97.6 71 18 142/68 100 I/O 05/09/16 05/09/16 05/09/16 05/10/16 05/10/16 05/10/16 06:59 14:59 22:59 06:59 14:59 22:59 Intake Total 985 ml Output Total 1600 ml 4650 ml 3500 ml Balance -1600 ml -3665 ml -3500 ml Intake Oral 985 ml Output Urine Total 1600 ml 4650 ml 3500 ml # Voids 1 # Bowel Movements 0 Result Diagram: 05/08/16 0632 05/08/16 0632 Imaging Last Impressions Abdomen X-Ray 05/09/16 0000 Signed Impressions: Service Date/Time: Monday, May 09, 2016 15:26 - CONCLUSION: Moderate to large colonic stool. Nonobstructive pattern. Severino Lakhani MD Renal Ultrasound 05/07/16 0000 Signed Impressions: Service Date/Time: April 14:52 - CONCLUSION: 1. No evidence of hydronephrosis. 2. Bilateral benign-appearing renal cysts. Juancho Carson MD Objective Remarks GENERAL: This is a thin, well-developed patient, in no apparent distress. CARDIOVASCULAR: Regular rate and rhythm without murmurs, gallops, or rubs. RESPIRATORY: Clear to auscultation. Breath sounds equal bilaterally. No wheezes , rales, or rhonchi. GASTROINTESTINAL: Abdomen soft, non-tender, nondistended. Hypoactive sounds MUSCULOSKELETAL: Extremities without clubbing, cyanosis, or edema. NEURO: Alert & Oriented x4 to person, place, time, situation. Moves all ext x4 Urinary Catheter: Yes Assessment to: Continue Degroot insert reason: Obstruction/Retention A/P Problem List: (1) Constipation ICD Code: K59.00 Status: Acute Plan: Etiology unclear, continue aggressive bowel regimen GI consult appreciated (2) Urinary retention ICD Code: R33.9 Status: Acute Plan: Status post Degroot, urology consult appreciated Continue catheter management and outpatient voiding trials Continue Flomax No evidence of UTI Problem Qualifiers (1) Constipation: Qualified Code: K59.00 - Constipation, unspecified constipation type Sarahi Rogel MD May 10, 2016 14:33
[2016-05-10 20:47] VITALS: BP 153/69; PULSE 84; RESP 20; TEMP 97.1; O2SAT 98
[2016-05-10] MEDS: DOCUSATE SODIUM 100 MG CAP PO SCH (21:51)
[2016-05-10] MEDS: TAMSULOSIN HCL 0.4 MG CAP PO SCH (21:51)
[2016-05-11 00:28] VITALS: BP 157/72; PULSE 71; RESP 18; TEMP 97.5; O2SAT 98
[2016-05-11 05:25] VITALS: BP 152/82; PULSE 85; RESP 18; TEMP 98.4; O2SAT 100
[2016-05-11] MEDS: INSULIN ASPART SUPPLEMENTAL SCALE SQ SCH ×4 (06:10→21:40)
[2016-05-11 09:01] LABS: ANION GAP 7 MEQ/L (5-15); BICARBONATE 26.6 MEQ/L (21.0-32.0); BLOOD UREA NITROGEN 16 MG/DL (7-18); CHLORIDE 102 MEQ/L (98-107); GLOMERULAR FILTRATION RATE 78 ML/MIN (>89); MAGNESIUM 2.1 MG/DL (1.5-2.5); POTASSIUM 4.6 MEQ/L (3.5-5.1); SODIUM (NA) 136 MEQ/L (136-145)
[2016-05-11] MEDS: POLYETHYLENE GLYCOL 17 GM PKG PO SCH (09:08)
[2016-05-11] MEDS: DOCUSATE SODIUM 100 MG CAP PO SCH ×2 (09:08→21:41)
[2016-05-11] MEDS: METOPROLOL TARTRATE 25 MG TAB PO SCH ×2 (09:08→21:40)
[2016-05-11] MEDS: SODIUM CHLORIDE 0.9% FLUSH 5 ML FLUSH FLUSH SCH ×2 (09:09→21:41)
[2016-05-11 09:26] VITALS: BP 153/75; PULSE 92; RESP 18; TEMP 99; O2SAT 99
--- NOTE | 2016-05-11 12:12 | HHI.PR ---
Subjective Remarks Patient seen in room in follow-up for constipation. Eating very well. Denies any abdominal pain. Reports watery stools and some incontinence. Objective Vitals Vital Signs Date Time Temp Pulse Resp B/P Pulse Ox O2 Delivery O2 Flow Rate FiO2 05/11/16 09:26 99.0 92 18 153/75 99 05/11/16 05:25 98.4 85 18 152/82 100 05/11/16 00:28 97.5 71 18 157/72 98 05/10/16 20:47 97.1 84 20 153/69 98 05/10/16 14:00 96.4 71 16 140/58 98 I/O 05/10/16 05/10/16 05/10/16 05/11/16 05/11/16 05/11/16 07:00 15:00 23:00 07:00 15:00 23:00 Intake Total 760 ml Output Total 3500 ml 1000 ml 2300 ml Balance -3500 ml -240 ml -2300 ml Intake Oral 760 ml Output Urine Total 3500 ml 1000 ml 2300 ml # Voids 1 # Bowel Movements 1 Result Diagram: 05/08/16 0632 05/11/16 0738 Objective Remarks GENERAL: This is a thin, well-developed patient, in no apparent distress. CARDIOVASCULAR: Regular rate and rhythm without murmurs, gallops, or rubs. RESPIRATORY: Clear to auscultation. Breath sounds equal bilaterally. No wheezes , rales, or rhonchi. GASTROINTESTINAL: Abdomen soft, non-tender, nondistended. Normoactive bowel sounds MUSCULOSKELETAL: Extremities without clubbing, cyanosis, or edema. NEURO: Alert & Oriented x4 to person, place, time, situation. Moves all ext x4 A/P Problem List: (1) Constipation ICD Code: K59.00 Status: Acute Plan: Etiology unclear, continue aggressive bowel regimen GI consult appreciated Repeat CT abdomen and pelvis Interestingly patient's appetite has not changed, he is not nauseated reports no abdominal pain (2) Urinary retention ICD Code: R33.9 Status: Acute Plan: Status post Degroot, urology consult appreciated Continue catheter management and outpatient voiding trials Continue Flomax No evidence of UTI Problem Qualifiers (1) Constipation: Qualified Code: K59.00 - Constipation, unspecified constipation type Sarahi Rogel MD May 11, 2016 12:12
[2016-05-11 13:04] VITALS: BP 123/66; PULSE 73; RESP 18; TEMP 98.9; O2SAT 100
[2016-05-11] MEDS ORDERED: DIATRIZOATE MEGLUM/DIATRIZOATE SOD 9 ML CUP PO ONE (13:15)
--- NOTE | 2016-05-11 14:38 | HHI.GIFU ---
Subjective Remarks Still leaking some stool but no formed BM. Abdomen is soft, nontender with bowel sounds present. Appetite is good, denies N/V. Ct of abdomen/pelvis is ordered, if that is normal we will try 1/2 gallon of golytely. (Ciera Cifuentes) Objective Vitals I&O Vital Signs Date Time Temp Pulse Resp B/P Pulse Ox O2 Delivery O2 Flow Rate FiO2 05/11/16 13:04 98.9 73 18 123/66 100 05/11/16 09:26 99.0 92 18 153/75 99 05/11/16 05:25 98.4 85 18 152/82 100 05/11/16 00:28 97.5 71 18 157/72 98 05/10/16 20:47 97.1 84 20 153/69 98 I/O 05/10/16 05/10/16 05/10/16 05/11/16 05/11/16 05/11/16 07:00 15:00 23:00 07:00 15:00 23:00 Intake Total 760 ml Output Total 3500 ml 1000 ml 2300 ml Balance -3500 ml -240 ml -2300 ml Intake Oral 760 ml Output Urine Total 3500 ml 1000 ml 2300 ml # Voids 1 # Bowel Movements 1 Laboratory Laboratory Tests Test 05/11/16 07:38 Sodium Level 136 Potassium Level 4.6 Chloride Level 102 Carbon Dioxide Level 26.6 Anion Gap 7 Blood Urea Nitrogen 16 Creatinine 0.93 Estimat Glomerular Filtration 78 Rate Random Glucose 128 Calcium Level 8.8 Magnesium Level 2.1 Thyroid Stimulating Hormone 1.770 3rd Gen Date/Time Procedure Status Source Growth 05/06/16 23:55 Aerobic Blood Culture - Preliminary Resulted Blood Peripheral NO GROWTH IN 4 DAYS 05/06/16 23:55 Anaerobic Blood Culture - Preliminary Resulted Blood Peripheral NO GROWTH IN 4 DAYS 05/06/16 22:50 Urine Culture - Final Complete Urine Clean Catch NO GROWTH IN 48 HOURS. Imaging Last 72 hours Impressions Abdomen X-Ray 05/09/16 0000 Signed Impressions: Service Date/Time: Monday, May 09, 2016 15:26 - CONCLUSION: Moderate to large colonic stool. Nonobstructive pattern. Severino Lakhani MD Physical Exam HEENT: Pupils round and reactive to light; normocephalic; atraumatic; no jaundice. Throat is clear. NECK: Neck is supple, no JVD, no lymphadenopathy. CHEST: Chest is clear to auscultation and percussion. CARDIAC: Regular rate and rhythm with no murmur gallop or rubs. ABDOMEN: Soft, nondistended, nontender; no hepatosplenomegaly; bowel sounds are present in all four quadrants. EXTREMITIES: No clubbing, cyanosis, or edema. SKIN: Normal; no rash; no jaundice. ACCOUNTANT ASSISTANT: No focal deficits; alert and oriented times three. (Ciera Cifuentes) Assessment and Plan Assessment: (1) Constipation Plan: Has C/O constipation no BM for at least 3 days despite enemas and Lactulose,having small amount of leaking stools, denies Hx of constipation Plan Abdomen X-Ray 05/09/16 >>Impressions: Wednesday, May 09, 2016 15:26 - CONCLUSION: Moderate to large colonic stool. Nonobstructive pattern. 81 year old male admitted with urinary retention has evidence of kidney stones and requires an indwelling catheter. Has constipation which and leaking small amount of stool, had Lactulose and a fleets enema with only small amount of stool. Abdominal xray showed moderate to large colonic stool, no obstruction seen. Kade abdominal pain or N/V.Has a PMH of stomach ulcer requiring a stomach surgery, denies any heartburn or reflux, no hematemesis or melana. 05/21/16- Still leaking small amount liquid stool, no formed BM, no obstruction on X-ray. Will have Ct abdomen/pelvis today, if that is normal we can give 1/2 gallon of golytely. He had Magnesium citrate yesterday which did not work. Plan -Continue Miralax -Increase fluid intake and activity -Add Golytely 1/[address] abdomen normal -CT abdomen/pelvis ordered for today per hospitalist -Will need a colonoscopy at some point as he has not had a colonoscopy for several years, but if constipation resolves, this can be done as an outpatient -Add Colace daily -Supportive care -Further recommendations to follow Thank you for the consultation Patient was seen and examined by Dr Daniels and myself, this note is written on his behalf. (Ciera Cifuentes) Physician Comments Seen and examined, plan as above, further recommendations to follow. (Girish Daniels MD) Problem Qualifiers (1) Constipation: Qualified Code: K59.00 - Constipation, unspecified constipation type Ciera Cifuentes May 11, 2016 14:38 Girish Daniels MD May 11, 2016 15:46
[2016-05-11 17:12] VITALS: BP 155/69; PULSE 72; RESP 18; TEMP 98.2; O2SAT 97
[2016-05-11 18:08] LABS: HEMOGLOBIN A1a 0.6 %; HEMOGLOBIN A1b 1.9 %; HEMOGLOBIN Ao 84.2 %; HEMOGLOBIN LA1C 2.3 %; HEMOGLOBIN P3 3.9 %
[2016-05-11 20:05] VITALS: BP 156/76; PULSE 72; RESP 18; TEMP 97.9; O2SAT 98
[2016-05-11] MEDS: TAMSULOSIN HCL 0.4 MG CAP PO SCH (21:40)
[2016-05-12 00:06] VITALS: BP 162/72; PULSE 64; RESP 18; TEMP 97.9; O2SAT 97
--- NOTE | 2016-05-12 01:44 | RADRPT ---
EXAM DATE/TIME: 05/12/2016 01:14 [place] COMPARISON: CT ABDOMEN & PELVIS W/O CONTRAST, May 06, 2016, 4:41. INDICATIONS : Diffuse abdominal pain with distension. ORAL CONTRAST: Prescribed oral contrast ingested. RADIATION DOSE: 5.06 CTDIvol (mGy) MEDICAL HISTORY : Cardiovascular disease. Hypertension. Diabetes mellitus type 2. SURGICAL HISTORY : Right hip replacement. ENCOUNTER: Initial ACUITY: 1 day PAIN SCALE: 4/10 LOCATION: Diffuse abdomen/pelvis TECHNIQUE: Volumetric scanning of the abdomen and pelvis was performed. Using automated exposure control and ad justment of the mA and/or kV according to patient size, radiation dose was kept as low as reasonably achievable to obtain optimal diagnostic quality images. FINDINGS: LOWER LUNGS: A calcified granuloma seen within the left lung base. Significant coronary artery atherosclerotic anpu cifications noted. Significant aortic valvular calcifications observed. Small hiatal hernia. LIVER: Homogeneous density without lesion. There is no dilation of the biliary tree. No calcified gallston es. SPLEEN: Normal size without lesion. PANCREAS: Within normal limits. KIDNEYS: Normal in size and shape. There is no mass, stone, or hydronephrosis. The exophytic renal lesion on the left is poorly seen on the current study due to breathing motion artifact. No renal or ureteral c alculi observed. Bolus felt to relate to a distal ureteral stone on the right on the prior study is a ctually a venous calcification within the adjacent testicular vein. This is better seen on the curren t study. ADRENAL GLANDS: Within normal limits. VASCULAR: There is no aortic aneurysm. The stent graft is partially seen involving the thoracic aorta. BOWEL/MESENTERY: The stomach, small bowel, and colon demonstrate no acute abnormality. There is no free intraperitone al air or fluid. ABDOMINAL WALL: Within normal limits. RETROPERITONEUM: There is no lymphadenopathy. BLADDER: High density material is seen filling the lumen of the urinary bladder which also contains a Degroot. REPRODUCTIVE: Within normal limits. INGUINAL: There is no lymphadenopathy or hernia. MUSCULOSKELETAL: Within normal limits for patient age. A right hip prosthesis generates beam hardening artifact which obscures some of the pelvis. CONCLUSION: 1. No renal or ureteral stones. What was thought to be a ureteral stone on the prior study actually r elates to a venous calcification within the adjacent testicular vein. 2. High density material within the urinary bladder which contains a Degroot. This raises concern for b lood within the urinary bladder. 3. Significant coronary artery atherosclerotic calcifications. 4. Small hiatal hernia. Alexx Lowery Jr., MD on May 12, 2016 at 1:36 Board Certified Radiologist. This report was verified electronically.
[2016-05-12 04:09] VITALS: BP 151/66; PULSE 68; RESP 20; TEMP 97.4; O2SAT 98
[2016-05-12] MEDS: INSULIN ASPART SUPPLEMENTAL SCALE SQ SCH ×4 (06:17→22:18)
[2016-05-12 08:35] VITALS: BP 142/70; PULSE 85; RESP 20; TEMP 96.1; O2SAT 95
[2016-05-12] MEDS: METOPROLOL TARTRATE 25 MG TAB PO SCH ×2 (10:03→22:19)
[2016-05-12] MEDS: POLYETHYLENE GLYCOL 17 GM PKG PO SCH (10:03)
[2016-05-12] MEDS: DOCUSATE SODIUM 100 MG CAP PO SCH ×2 (10:03→22:19)
[2016-05-12] MEDS: SODIUM CHLORIDE 0.9% FLUSH 5 ML FLUSH FLUSH SCH ×2 (10:04→21:00)
--- NOTE | 2016-05-12 10:34 | HHI.GIFU ---
Subjective Remarks Resting in bed. States he is passing a little bit of liquid stool- "leakage" but has not had a bowel movement in 4 days. Denies any usual problems with constipation. No n/v. No abdominal pain. Tolerating diet. (Debora Delgado) Objective Vitals I&O Vital Signs Date Time Temp Pulse Resp B/P Pulse Ox O2 Delivery O2 Flow Rate FiO2 05/12/16 08:35 96.1 85 20 142/70 95 05/12/16 04:09 97.4 68 20 151/66 98 05/12/16 00:06 97.9 64 18 162/72 97 05/11/16 20:05 97.9 72 18 156/76 98 05/11/16 17:12 98.2 72 18 155/69 97 05/11/16 13:04 98.9 73 18 123/66 100 I/O 05/11/16 05/11/16 05/11/16 05/12/16 05/12/16 05/12/16 06:59 14:59 22:59 06:59 14:59 22:59 Intake Total 840 ml Output Total 2300 ml 2000 ml Balance -2300 ml 840 ml -2000 ml Intake Oral 840 ml Output Urine Total 2300 ml 2000 ml Imaging Last Impressions Abdomen/Pelvis CT 05/11/16 0000 Signed Impressions: Service Date/Time: Thursday, May 12, 2016 01:14 - CONCLUSION: 1. No renal or ureteral stones. What was thought to be a ureteral stone on the prior study actually relates to a venous calcification within the adjacent testicular vein. 2. High density material within the urinary bladder which contains a Degroot. This raises concern for blood within the urinary bladder. 3. Significant coronary artery atherosclerotic calcifications. 4. Small hiatal hernia. Alexx Lowery Jr., MD Abdomen X-Ray 05/09/16 0000 Signed Impressions: Service Date/Time: Monday, May 09, 2016 15:26 - CONCLUSION: Moderate to large colonic stool. Nonobstructive pattern. Severino Lakhani MD Renal Ultrasound 05/07/16 0000 Signed Impressions: Service Date/Time: April 14:52 - CONCLUSION: 1. No evidence of hydronephrosis. 2. Bilateral benign-appearing renal cysts. Juancho Carson MD Physical Exam HEENT: Normocephalic; atraumatic; no jaundice. CHEST: CTA CARDIAC: RRR ABDOMEN: Soft, NONdistended, nontender; no hepatosplenomegaly; bowel sounds are hypoactive EXTREMITIES: No clubbing, cyanosis, or edema. SKIN: Normal; no rash; no jaundice. OCTAVE BOARD RACKER: No focal deficits; alert and oriented times three. (Debora Delgado) Assessment and Plan Plan ASSESSMENT: - Constipation. Abdomen X-Ray (05/09/16)----> Moderate to large colonic stool. Nonobstructive pattern. Abdomen/Pelvis CT (05/11/16)----> 1. No renal or ureteral stones. What was thought to be a ureteral stone on the prior study actually relates to a venous calcification within the adjacent testicular vein. 2. High density material within the urinary bladder which contains a Degroot. This raises concern for blood within the urinary bladder. 3. Significant coronary artery atherosclerotic calcifications. 4. Small hiatal hernia. S/P Fleets enemas, Lactulose, Colace, Magnesium citrate. He is passing some leakage, but states he has not actually had a bowel movement in 4 days. Denies any regular issues with constipation. States it has been several years since he last had a colonoscopy. Plan - [facility] - Golytely 1/2 Gallon po x1 now - Cont. Colace - Cont. Miralax - S/P Fleets enemas - S/P Lactulose - S/P Magnesium Citrate. - If no results with Golytely, consider Gastrografin enema vs. colonoscopy - Supportive care - Further recommendations to follow based on results of above - Pt seen and examined by Dr. Johnson and myself and this note is written on his behalf (Debora Delgado) Physician Comments Patient was seen and examined, agree with above note. we will check labs, continue supportive care. may end up needing colonoscopy. (Octavio Johnson MD) Debora Delgado May 12, 2016 10:34 Octavio Johnson MD May 12, 2016 21:46
[2016-05-12] MEDS ORDERED: PEG (High)/E-LYTE SOLN 4000 ML BTL PO ONE (11:00)
[2016-05-12 13:28] VITALS: BP 155/67; PULSE 68; RESP 20; TEMP 96.6; O2SAT 100
[2016-05-12 17:24] VITALS: BP 126/71; PULSE 66; RESP 20; TEMP 97.9; O2SAT 98
--- NOTE | 2016-05-12 18:06 | HHI.PR ---
Subjective Remarks Patient seen this afternoon around 1pm. Says he is feeling well. Still with lower normal fullness, however no abdominal pain. He is drinking GoLYTELY. Denies any nausea or vomiting. Denies any chest pain or shortness of breath. Degroot bag draining clear urine. Objective Vital Signs Date Time Temp Pulse Resp B/P Pulse Ox O2 Delivery O2 Flow Rate FiO2 05/12/16 17:24 97.9 66 20 126/71 98 05/12/16 13:28 96.6 68 20 155/67 100 05/12/16 08:35 96.1 85 20 142/70 95 05/12/16 04:09 97.4 68 20 151/66 98 05/12/16 00:06 97.9 64 18 162/72 97 05/11/16 20:05 97.9 72 18 156/76 98 I/O 05/11/16 05/11/16 05/11/16 05/12/16 05/12/16 05/12/16 07:00 15:00 23:00 07:00 15:00 23:00 Intake Total 840 ml Output Total 2300 ml 2000 ml 1372 ml Balance -2300 ml 840 ml -2000 ml -1372 ml Intake Oral 840 ml Output Urine Total 2300 ml 2000 ml 1372 ml Result Diagram: 05/08/16 0632 05/11/16 0738 Imaging Last Impressions Abdomen/Pelvis CT 05/11/16 0000 Signed Impressions: Service Date/Time: Thursday, May 12, 2016 01:14 - CONCLUSION: 1. No renal or ureteral stones. What was thought to be a ureteral stone on the prior study actually relates to a venous calcification within the adjacent testicular vein. 2. High density material within the urinary bladder which contains a Degroot. This raises concern for blood within the urinary bladder. 3. Significant coronary artery atherosclerotic calcifications. 4. Small hiatal hernia. Alexx Lowery Jr., MD Abdomen X-Ray 05/09/16 0000 Signed Impressions: Service Date/Time: Monday, May 09, 2016 15:26 - CONCLUSION: Moderate to large colonic stool. Nonobstructive pattern. Severino Lakhani MD Renal Ultrasound 05/07/16 0000 Signed Impressions: Service Date/Time: April 14:52 - CONCLUSION: 1. No evidence of hydronephrosis. 2. Bilateral benign-appearing renal cysts. Juancho Carson MD Objective Remarks GENERAL: patient sitting up in chair. Appears comfortable. He is alert and oriented x3. SKIN: Warm and dry. HEAD: Normocephalic. EYES: No scleral icterus. No injection or drainage. NECK: Supple, trachea midline. No JVD CARDIOVASCULAR: Regular rate and rhythm without murmurs, gallops, or rubs. RESPIRATORY: Breath sounds equal bilaterally. No accessory muscle use. GASTROINTESTINAL:no bowel tenderness. no rebound or guarding.patientdoes have some lower abdominal fullness. Positive bowel sounds MUSCULOSKELETAL: No cyanosis, or edema. BACK: Nontender without obvious deformity. No CVA tenderness. A/P Assessment and Plan =====05/12/16 Patient drinking GoLYTELY. Hopefully can have bowel movement. Appreciate GI assistance. Degroot in place draining clear urine //Constipation. Acute. - On CT abdomen. Appreciate GI assistance. Continue GoLYTELY. Urinary retention. Continue Degroot in place. Appreciate urology assistance. Will need Degroot at discharge. Outpatient voiding trials. Continue Flomax. Prophylaxis. Patient is ambulatory. Discharge Planning patient can discharge home when he has a bowel movement. We'll need to followup with urology, for outpatient voiding trials. Jamison Magallon MD May 12, 2016 18:06
[2016-05-12 20:00] VITALS: BP 166/70; PULSE 73; RESP 24; TEMP 96.8; TEMP 98.7; O2SAT 96
[2016-05-12] MEDS: TAMSULOSIN HCL 0.4 MG CAP PO SCH (22:19)
[2016-05-13] VITALS: BP 172/79; PULSE 87; RESP 20; TEMP 98.9; O2SAT 96
[2016-05-13 04:00] VITALS: BP 182/84; PULSE 82; RESP 18; TEMP 98.8; O2SAT 99
[2016-05-13] MEDS: INSULIN ASPART SUPPLEMENTAL SCALE SQ SCH ×4 (06:08→21:47)
[2016-05-13 08:21] VITALS: BP 149/69; PULSE 66; RESP 18; TEMP 96.6; O2SAT 99
[2016-05-13] MEDS: SODIUM CHLORIDE 0.9% FLUSH 5 ML FLUSH FLUSH SCH (09:00)
[2016-05-13] MEDS: DOCUSATE SODIUM 100 MG CAP PO SCH ×2 (09:12→21:00)
[2016-05-13] MEDS: POLYETHYLENE GLYCOL 17 GM PKG PO SCH (09:12)
[2016-05-13] MEDS: METOPROLOL TARTRATE 25 MG TAB PO SCH ×2 (09:12→21:46)
[2016-05-13 09:26] LABS: AUTOMATED NEUTROPHIL # 6.5 TH/MM3 (1.8-7.7); BASOPHIL % 0.5 % (0.0-2.0); EOSINOPHIL # 0.2 TH/MM3 (0-0.4); EOSINOPHIL % 1.7 % (0.0-4.0); HEMATOCRIT 35.3 % (39.0-51.0); HEMO FLAGS DIFF FINAL; LYMPH % 18.2 % (9.0-44.0); LYMPHOCYTE # 1.7 TH/MM3 (1.0-4.8); MEAN CELL VOLUME 83.6 FL (80.0-100.0); MEAN CORPUSCULAR HEMOGLOBIN 28.3 PG (27.0-34.0); MEAN CORPUSCULAR HGB CONC 33.8 % (32.0-36.0); NEUT % 70.6 % (16.0-70.0); PLATELET COUNT 266 TH/MM3 (150-450); RED BLOOD COUNT 4.22 MIL/MM3 (4.50-5.90); RED CELL DISTRIBUTION WIDTH 14.4 % (11.6-17.2); WHITE BLOOD COUNT 9.3 TH/MM3 (4.0-11.0)
[2016-05-13 09:50] LABS: BICARBONATE 24.2 MEQ/L (21.0-32.0); POTASSIUM 4.5 MEQ/L (3.5-5.1)
[2016-05-13] MEDS ORDERED: PEG (High)/E-LYTE SOLN 4000 ML BTL PO ONE (10:30)
--- NOTE | 2016-05-13 10:54 | HHI.GIFU ---
Subjective Remarks Took 07/11 of Golytely- no significant results. States he is only passing small amounts of liquid that he is incontinent with. Ate breakfast- scrambled eggs, pancakes, cereal at 9am. No n/v. No abdominal pain. (Debora Dlegado ) Objective Vitals I&O Vital Signs Date Time Temp Pulse Resp B/P Pulse Ox O2 Delivery O2 Flow Rate FiO2 05/13/16 08:21 96.6 66 18 149/69 99 05/13/16 04:00 98.8 82 18 182/84 99 05/13/16 00:00 98.9 87 20 172/79 96 05/12/16 20:00 98.7 73 24 166/70 96 05/12/16 20:00 96.8 73 24 166/70 96 05/12/16 17:24 97.9 66 20 126/71 98 05/12/16 13:28 96.6 68 20 155/67 100 I/O 05/12/16 05/12/16 05/12/16 05/13/16 05/13/16 05/13/16 07:00 15:00 23:00 07:00 15:00 23:00 Output Total 2000 ml 2972 ml 1200 ml Balance -2000 ml -2972 ml -1200 ml Output Urine Total 2000 ml 2972 ml 1200 ml Laboratory Laboratory Tests Test 05/13/16 08:34 White Blood Count 9.3 Red Blood Count 4.22 Hemoglobin 11.9 Hematocrit 35.3 Mean Corpuscular Volume 83.6 Mean Corpuscular Hemoglobin 28.3 Mean Corpuscular Hemoglobin 33.8 Concent Red Cell Distribution Width 14.4 Platelet Count 266 Mean Platelet Volume 9.8 Neutrophils (%) (Auto) 70.6 Lymphocytes (%) (Auto) 18.2 Monocytes (%) (Auto) 9.0 Eosinophils (%) (Auto) 1.7 Basophils (%) (Auto) 0.5 Neutrophils # (Auto) 6.5 Lymphocytes # (Auto) 1.7 Monocytes # (Auto) 0.8 Eosinophils # (Auto) 0.2 Basophils # (Auto) 0.0 CBC Comment DIFF FINAL Differential Comment Sodium Level 135 Potassium Level 4.5 Chloride Level 101 Carbon Dioxide Level 24.2 Anion Gap 10 Blood Urea Nitrogen 18 Creatinine 0.94 Estimat Glomerular Filtration 77 Rate Random Glucose 132 Calcium Level 9.1 Imaging Last Impressions Abdomen/Pelvis CT 05/11/16 0000 Signed Impressions: Service Date/Time: Thursday, May 12, 2016 01:14 - CONCLUSION: 1. No renal or ureteral stones. What was thought to be a ureteral stone on the prior study actually relates to a venous calcification within the adjacent testicular vein. 2. High density material within the urinary bladder which contains a Degroot. This raises concern for blood within the urinary bladder. 3. Significant coronary artery atherosclerotic calcifications. 4. Small hiatal hernia. Alexx Lowery Jr., MD Abdomen X-Ray 05/09/16 0000 Signed Impressions: Service Date/Time: Monday, May 09, 2016 15:26 - CONCLUSION: Moderate to large colonic stool. Nonobstructive pattern. Severino Lakhani MD Renal Ultrasound 05/07/16 0000 Signed Impressions: Service Date/Time: April 14:52 - CONCLUSION: 1. No evidence of hydronephrosis. 2. Bilateral benign-appearing renal cysts. Juancho Carson MD Physical Exam HEENT: Normocephalic; atraumatic; no jaundice. CHEST: CTA CARDIAC: RRR ABDOMEN: Soft, NONdistended, nontender; no hepatosplenomegaly; bowel sounds are hypoactive EXTREMITIES: No clubbing, cyanosis, or edema. SKIN: Normal; no rash; no jaundice. CONTROL SYSTEMS TECHNICIAN: No focal deficits; alert and oriented times three. (Debora Delgado) Assessment and Plan Plan ASSESSMENT: - Constipation. Abdomen X-Ray (05/09/16)----> Moderate to large colonic stool. Nonobstructive pattern. Abdomen/Pelvis CT (05/11/16)----> 1. No renal or ureteral stones. What was thought to be a ureteral stone on the prior study actually relates to a venous calcification within the adjacent testicular vein. 2. High density material within the urinary bladder which contains a Degroot. This raises concern for blood within the urinary bladder. 3. Significant coronary artery atherosclerotic calcifications. 4. Small hiatal hernia. S/P Fleets enemas, Lactulose, Colace, Magnesium citrate. Golytely yesterday. He is having some leakage of liquid stool, but still has not had a bowel movement. He ate breakfast at 9am- scrambled eggs, cereal, and pancakes. Clinically, he looks well- no distention, nausea, vomiting, tenderness. Will repeat Golytely today with SSE x2, and plan for colonoscopy in am. Plan: - Plan for colonoscopy in am - Obtain consents - Clear liquids - NPO after MN - Golytely today - SSE x 2 today - S/P Fleets enemas - S/P Lactulose - S/P Magnesium Citrate. - S/P Golytely - Supportive care - Further recommendations to follow based on results of above - Pt seen and examined by Dr. Johnson and myself and this note is written on his behalf (Debora Delgado) Physician Comments Patient was seen and examined, agree with above note and plan, colonoscopy in AM (Octavio Johnson MD) Debora Delgado May 13, 2016 10:54 Octavio Johnson MD May 13, 2016 20:25
[2016-05-13 12:00] VITALS: BP 171/72; PULSE 66; RESP 18; TEMP 95.7; O2SAT 98
[2016-05-13 16:00] VITALS: BP 169/70; PULSE 68; RESP 18; TEMP 96.1; O2SAT 98
[2016-05-13 21:03] VITALS: BP 138/73; PULSE 77; RESP 16; TEMP 97.9; O2SAT 97
--- NOTE | 2016-05-13 21:24 | HHI.PR ---
Subjective Remarks patient seen today around 11 AM. Says he is feeling all right, with the exception of leaking loose watery stools. Denies any abdominal pain. Still no solid bowel movement. Denies any nausea or vomiting. Objective Vital Signs Date Time Temp Pulse Resp B/P Pulse Ox O2 Delivery O2 Flow Rate FiO2 05/13/16 21:03 97.9 77 16 138/73 97 05/13/16 16:00 96.1 68 18 169/70 98 05/13/16 12:00 95.7 66 18 171/72 98 05/13/16 08:21 96.6 66 18 149/69 99 05/13/16 04:00 98.8 82 18 182/84 99 05/13/16 00:00 98.9 87 20 172/79 96 I/O 05/12/16 05/12/16 05/12/16 05/13/16 05/13/16 05/13/16 07:00 15:00 23:00 07:00 15:00 23:00 Intake Total 960 ml Output Total 2000 ml 2972 ml 1200 ml 1250 ml Balance -2000 ml -2972 ml -1200 ml -290 ml Intake Oral 960 ml Output Urine Total 2000 ml 2972 ml 1200 ml 1250 ml # Bowel Movements 4 Result Diagram: 05/13/16 0834 05/13/16 0834 Objective Remarks GENERAL:walking around room. He is alert and oriented x3. SKIN: Warm and dry. HEAD: Normocephalic. EYES: No scleral icterus. No injection or drainage. NECK: Supple, trachea midline. No JVD CARDIOVASCULAR: Regular rate and rhythm without murmurs, gallops, or rubs. RESPIRATORY: Breath sounds equal bilaterally. No accessory muscle use. GASTROINTESTINAL:no bowel tenderness. no rebound or guarding.patientdoes have some lower abdominal fullness. Positive bowel sounds MUSCULOSKELETAL: No cyanosis, or edema. BACK: Nontender without obvious deformity. No CVA tenderness. A/P Assessment and Plan =====05/13/16 Still constipated. Leaking brown liquid stool. GI plans for colonoscopy in a.m. Bowel prep, clears and n.p.o. at midnight //Constipation. Acute. - On CT abdomen. Appreciate GI assistance. Continue GoLYTELY. - Will start IV fluids as patient will be n.p.o. midnight. Urinary retention. Continue Degroot in place. Appreciate urology assistance. Will need Degroot at discharge. Outpatient voiding trials. Continue Flomax. Prophylaxis. Patient is ambulatory. Discharge Planning colonoscopy plan 05/14 patient can discharge home when he has a bowel movement. -We'll need to followup with urology, for outpatient voiding trials. Jamison Magallon MD May 13, 2016 21:24
[2016-05-13] MEDS: TAMSULOSIN HCL 0.4 MG CAP PO SCH (21:47)
[2016-05-14] VITALS (7 sets, daily range): BP systolic 130–163; BP diastolic 60–82; PULSE 63–80; RESP 16–18; TEMP 96.9–98.3; O2SAT 98–100
[2016-05-14] MEDS: SODIUM CHLORIDE 0.9% FLUSH 5 ML FLUSH FLUSH SCH ×2 (01:01→08:34)
[2016-05-14] MEDS: NS + KCL 40 MEQ INJ 1,000 ML IV SCH ×2 (01:01→08:34)
[2016-05-14] MEDS: INSULIN ASPART SUPPLEMENTAL SCALE SQ SCH ×2 (06:00→11:00)
[2016-05-14 08:08] LABS: AUTOMATED NEUTROPHIL # 5.4 TH/MM3 (1.8-7.7); BASOPHIL % 0.5 % (0.0-2.0); EOSINOPHIL # 0.2 TH/MM3 (0-0.4); EOSINOPHIL % 2.6 % (0.0-4.0); HEMATOCRIT 34.1 % (39.0-51.0); HEMO FLAGS DIFF FINAL; LYMPH % 22.6 % (9.0-44.0); LYMPHOCYTE # 1.9 TH/MM3 (1.0-4.8); MEAN CELL VOLUME 86.1 FL (80.0-100.0); MEAN CORPUSCULAR HEMOGLOBIN 28.8 PG (27.0-34.0); MEAN CORPUSCULAR HGB CONC 33.4 % (32.0-36.0); MONO % 10.8 % (0.0-8.0); NEUT % 63.5 % (16.0-70.0); PLATELET COUNT 239 TH/MM3 (150-450); RED BLOOD COUNT 3.96 MIL/MM3 (4.50-5.90); RED CELL DISTRIBUTION WIDTH 14.4 % (11.6-17.2); WHITE BLOOD COUNT 8.5 TH/MM3 (4.0-11.0)
[2016-05-14] MEDS: METOPROLOL TARTRATE 25 MG TAB PO SCH (08:33)
[2016-05-14] MEDS: DOCUSATE SODIUM 100 MG CAP PO SCH (08:34)
[2016-05-14] MEDS: POLYETHYLENE GLYCOL 17 GM PKG PO SCH (08:34)
[2016-05-14 08:37] LABS: BICARBONATE 24.5 MEQ/L (21.0-32.0); POTASSIUM 4.4 MEQ/L (3.5-5.1)
[2016-05-14] MEDS ORDERED: INSULIN HUMAN REGULAR 1,000 UNITS/10 ML VIAL SQ PRN (09:30)
[2016-05-14] MEDS ORDERED: SODIUM CHLORID 0.9% 500 ML IV SCH (09:30)
[2016-05-14] MEDS ORDERED: LACTATED RINGER'S 1000 ML IV SCH (09:30)
[2016-05-14] MEDS ORDERED: METOPROLOL TARTRATE 25 MG TAB PO PRN (09:30)
--- NOTE | 2016-05-14 09:45 | EKG ---
Date Performed: 05/14/2016 Time Performed: 05:50:28 PTAGE: 81 years EKG: Marked baseline artifact Unclear underlying rhythm, possibly Sinus rhythm with first degree AV block Nonspecific ST-T wave changes Abnormal ECG Within the constraints of clau ed artifact, I see no definite change. PREVIOUS TRACING : 05/06/2016 03.07 DOCTOR: Srinivas Bell Interpretating Date/Time 05/14/2016 09:45:01
[2016-05-14] MEDS ORDERED: PROPOFOL 200 MG/20 ML AMP IV ONE (12:13)
--- NOTE | 2016-05-14 12:41 | HHI.GIFU ---
Subjective Remarks doing well, comfortable, had good results with prep. Objective Vitals I&O Vital Signs Date Time Temp Pulse Resp B/P Pulse Ox O2 Delivery O2 Flow Rate FiO2 05/14/16 12:10 97.0 80 18 163/82 99 05/14/16 08:00 96.9 77 18 163/82 100 05/14/16 04:34 97.6 79 16 141/60 98 05/14/16 00:41 97.0 66 18 148/62 100 05/13/16 21:03 97.9 77 16 138/73 97 05/13/16 16:00 96.1 68 18 169/70 98 I/O 05/13/16 05/13/16 05/13/16 05/14/16 05/14/16 05/14/16 07:00 15:00 23:00 07:00 15:00 23:00 Intake Total 960 ml Output Total 1200 ml 1250 ml 2000 ml Balance -1200 ml -290 ml -2000 ml Intake Oral 960 ml Output Urine Total 1200 ml 1250 ml 2000 ml # Voids 3 # Bowel Movements 4 2 3 Laboratory Laboratory Tests Test 05/14/16 07:38 White Blood Count 8.5 Red Blood Count 3.96 Hemoglobin 11.4 Hematocrit 34.1 Mean Corpuscular Volume 86.1 Mean Corpuscular Hemoglobin 28.8 Mean Corpuscular Hemoglobin 33.4 Concent Red Cell Distribution Width 14.4 Platelet Count 239 Mean Platelet Volume 9.5 Neutrophils (%) (Auto) 63.5 Lymphocytes (%) (Auto) 22.6 Monocytes (%) (Auto) 10.8 Eosinophils (%) (Auto) 2.6 Basophils (%) (Auto) 0.5 Neutrophils # (Auto) 5.4 Lymphocytes # (Auto) 1.9 Monocytes # (Auto) 0.9 Eosinophils # (Auto) 0.2 Basophils # (Auto) 0.0 CBC Comment DIFF FINAL Differential Comment Sodium Level 140 Potassium Level 4.4 Chloride Level 108 Carbon Dioxide Level 24.5 Anion Gap 8 Blood Urea Nitrogen 14 Creatinine 0.88 Estimat Glomerular Filtration 84 Rate Random Glucose 95 Calcium Level 8.8 Physical Exam HEENT: Normocephalic; atraumatic; no jaundice. CHEST: CTA CARDIAC: RRR ABDOMEN: Soft, NON distended, nontender; no hepatosplenomegaly; bowel sounds are hypoactive EXTREMITIES: No clubbing, cyanosis, or edema. SKIN: Normal; no rash; no jaundice. DINING HOST: No focal deficits; alert and oriented times three. Assessment and Plan Assessment: (1) Constipation Plan: Has C/O constipation no BM for at least 3 days despite enemas and Lactulose,having small amount of leaking stools, denies Hx of constipation did well with prep, colonoscopy showed small ulcer in rectum could be from prep , Bx done, small polyp removed by snare, o/w normal Plan ASSESSMENT: - Constipation. Abdomen X-Ray (05/09/16)----> Moderate to large colonic stool. Nonobstructive pattern. Abdomen/Pelvis CT (05/11/16)----> 1. No renal or ureteral stones. What was thought to be a ureteral stone on the prior study actually relates to a venous calcification within the adjacent testicular vein. 2. High density material within the urinary bladder which contains a Degroot. This raises concern for blood within the urinary bladder. 3. Significant coronary artery atherosclerotic calcifications. 4. Small hiatal hernia. S/P Fleets enemas, Lactulose, Colace, Magnesium citrate. Golytely yesterday. He is having some leakage of liquid stool, but still has not had a bowel movement. He ate breakfast at 9am- scrambled eggs, cereal, and pancakes. Clinically, he looks well- no distention, nausea, vomiting, tenderness. Will repeat Golytely today with SSE x2, colonoscopy keron churchill Plan: - ZAINAB - Supportive care - we will sign off since he is stable from GI stand Problem Qualifiers (1) Constipation: Qualified Code: K59.00 - Constipation, unspecified constipation type Octavio Johnson MD May 14, 2016 12:41
--- NOTE | 2016-05-14 14:40 | HHI.DS ---
Discharge Summary Admission Date May 06, 2016 at 23:56 Discharge Date: May 14, 2016 Admitting Diagnosis sepsis, uti, urinary retention (1) Constipation ICD Code: K59.00 (2) Urinary retention ICD Code: R33.9 Procedures Colonoscopy: showed small ulcer in rectum could be from prep, Bx done, small polyp removed by snare, o/w normal Brief History - From Admission History from patient, ER physician communication, interview of medical records. Patient reported that for the past 6 days, he really was not able to urinate well. He was also constipated for 6 days. He reports he came to emergency room the day before yesterday and Degroot catheter was placed. However he reports that this catheter was removed prior to him leaving. Last night, patient returns to emergency room without a Degroot catheter. He was complaining of urinary retention and constipation. Therefore a new Degroot catheter was placed in ER. As per ER report and on review of medical records, patient was at our emergency room on project hire of May 06, 2016. He did have a CT imaging studies done which revealed obstructive uropathy with renal stones. He also had Degroot catheter placed after multiple attempts and did have hematuria then because of this traumatic Degroot. He was discharged home with a follow-up urology appointment. He was also treated for constipation at that time with laxatives. Patient states that he never had similar symptoms. He reports he did have colonoscopy previously but he cannot remember one or the results of it. He thinks that there was some abnormalities. He reports he was in [facility] for the past 8 or 9 years. He just got out of [facility] last month. Patient himself denies fever at home. However is noted to have low-grade fever here with leukocytosis, tachycardia. CBC/BMP: 05/14/16 0738 05/14/16 0738 Significant Findings Laboratory Tests Test 05/13/16 05/14/16 08:34 07:38 Red Blood Count 4.22 MIL/MM3 3.96 MIL/MM3 (4.50-5.90) (4.50-5.90) Hemoglobin 11.9 GM/DL 11.4 GM/DL (13.0-17.0) (13.0-17.0) Hematocrit 35.3 % 34.1 % (39.0-51.0) (39.0-51.0) Neutrophils (%) (Auto) 70.6 % (16.0-70.0) Monocytes (%) (Auto) 9.0 % (0.0-8.0) 10.8 % (0.0-8.0) Sodium Level 135 MEQ/L (136-145) Estimat Glomerular Filtration 77 ML/MIN (>89) 84 ML/MIN (>89) Rate Random Glucose 132 MG/DL (74-106) Chloride Level 108 MEQ/L (98-107) Imaging Last Impressions Abdomen/Pelvis CT 05/11/16 0000 Signed Impressions: Service Date/Time: Thursday, May 12, 2016 01:14 - CONCLUSION: 1. No renal or ureteral stones. What was thought to be a ureteral stone on the prior study actually relates to a venous calcification within the adjacent testicular vein. 2. High density material within the urinary bladder which contains a Degroot. This raises concern for blood within the urinary bladder. 3. Significant coronary artery atherosclerotic calcifications. 4. Small hiatal hernia. Alexx Lowery Jr., MD Abdomen X-Ray 05/09/16 0000 Signed Impressions: Service Date/Time: Monday, May 09, 2016 15:26 - CONCLUSION: Moderate to large colonic stool. Nonobstructive pattern. Severino Lakhani MD Renal Ultrasound 05/07/16 0000 Signed Impressions: Service Date/Time: April 14:52 - CONCLUSION: 1. No evidence of hydronephrosis. 2. Bilateral benign-appearing renal cysts. Juancho Carson MD PE at Discharge GENERAL: This is a thin, well-developed patient, in no apparent distress. CARDIOVASCULAR: Regular rate and rhythm without murmurs, gallops, or rubs. RESPIRATORY: Clear to auscultation. Breath sounds equal bilaterally. No wheezes , rales, or rhonchi. GASTROINTESTINAL: Abdomen soft, non-tender, nondistended. Normoactive bowel sounds MUSCULOSKELETAL: Extremities without clubbing, cyanosis, or edema. NEURO: Alert & Oriented x4 to person, place, time, situation. Moves all ext x4 Pt update on day of discharge Patient reports that he is feeling much better. No longer having urge to have bowel movement. Abdominal cramps pretty much resolved. Hospital Course 81-year-old male admitted with severe constipation and acute urinary retention. Evaluation and treatment course detailed below: Severe constipation and acute urinary retention: Patient also has a 4 mm distal right ureteral stone above UVJ.With mild hydronephrosis. -Patient had some mild response to an enema. Gastroenterology was consulted. Constipation resolved with GoLYTELY. He underwent colonoscopy which showed small ulcer in rectum could be from prep, Bx done, small polyp removed by snare , o/w normal. Patient to follow-up with GI outpatient. -Acute urinary retention: The patient was seen and evaluated by urology. He is to continue the Degroot catheter and Flomax. He will follow up outpatient with urology for voiding trial. Abnormal urinalysis: Urine culture is negative. Antibiotics were discontinued. Sepsis by criteria on admission: Resolved. Urine culture is negative. Antibiotics were discontinued. Prediabetes: Followed with Accu-Cheks and sliding scale insulin. Patient is advised on a diet low in carbohydrates and fat on discharge. Advised outpatient follow-up. The patient has limited resources. He is at risk for recurrent hospitalization. He is discharged with home health with social service support. Pt Condition on Discharge: Good Discharge Disposition: Disch w/ Home Health Serv Discharge Time: <= 30 minutes Discharge Instructions DIET: Follow Instructions for: Heart Healthy Diet Activities you can perform: Regular-No Restrictions Follow up Referrals: Gastroenterology - 2 Weeks with Octavio Johnson MD Urology - 05/16/16 with Rodri Law MD New Medications: Dicyclomine (Bentyl) 20 Mg Tab 20 MG PO TID Bowel Management #30 Ref 0 TAB Lactulose Liq (Lactulose Liq) 10 Gm/15 Ml Soln 30 ML PO Q6H PRN CONSTIPATION Days 30 Ref 0 ML Continued Medications: Metoprolol Tartrate (Metoprolol Tartrate) 25 Mg Tab 25 MG PO BID #60 Ref 0 TAB Tamsulosin (Flomax) 0.4 Mg Cap 0.4 MG PO HS Manage Prostate Problems #30 Ref 0 CAP (This prescription has been renewed) Discontinued Medications: Ciprofloxacin (Cipro) 500 Mg Tab 500 MG PO BID Infection Days 7 Ref 0 TAB Metformin (Metformin) 500 Mg Tab 500 MG PO DAILY With meals Blood Sugar Management #60 Ref 0 TAB Polyethylene Glycol 3350 Powder (Miralax Powder) 17 Gm Powd 17 GM PO DAILY Mix and dissolve one measuring cap-ful (17 grams) in water or juice. Constipation #1 Ref 0 BOTTLE Hudson Baron MD May 14, 2016 14:40
== END 2016-05-14 17:34 | disposition home health service (06) | DRG 872 ==
LOC: NEPC 16:48 → NEDA 23:56 → N05B 05-07 02:44
PROVIDERS: ADMIT Family Medicine; ATTEND Family Medicine
PROC: 0T9B70Z Drainage of Bladder with Drainage Device, Via Natural or Artificial Opening (ICD-10-PCS; principal; 2016-05-06)
PROC: 0DBP8ZX Excision of Rectum, Via Natural or Artificial Opening Endoscopic, Diagnostic (ICD-10-PCS; 2016-05-14)
PROC: 0DBP8ZZ Excision of Rectum, Via Natural or Artificial Opening Endoscopic (ICD-10-PCS; 2016-05-14)
DX: A41.9 Sepsis, unspecified organism (principal); E11.22 Type 2 diabetes mellitus with diabetic chronic kidney disease; N39.0 Urinary tract infection, site not specified; K62.6 Ulcer of anus and rectum; J44.9 Chronic obstructive pulmonary disease, unspecified; N20.0 Calculus of kidney; N28.1 Cyst of kidney, acquired; R13.10 Dysphagia, unspecified; I12.9 Hypertensive chronic kidney disease with stage 1 through stage 4 chronic kidney disease, or unspecified chronic kidney disease; R33.9 Retention of urine, unspecified; N18.3 Chronic kidney disease, stage 3 (moderate); D12.5 Benign neoplasm of sigmoid colon; I25.10 Atherosclerotic heart disease of native coronary artery without angina pectoris; K57.30 Diverticulosis of large intestine without perforation or abscess without bleeding; E78.5 Hyperlipidemia, unspecified; K59.00 Constipation, unspecified; M19.90 Unspecified osteoarthritis, unspecified site; K44.9 Diaphragmatic hernia without obstruction or gangrene; K21.9 Gastro-esophageal reflux disease without esophagitis; I25.2 Old myocardial infarction; I25.84 Coronary atherosclerosis due to calcified coronary lesion; F17.210 Nicotine dependence, cigarettes, uncomplicated; Z65.3 Problems related to other legal circumstances; Z95.2 Presence of prosthetic heart valve; Z96.641 Presence of right artificial hip joint; Z95.1 Presence of aortocoronary bypass graft
CPT/HCPCS: 51702; 51703; 71010; 74000; 74176; 76775; 80048; 80053; 81001; 82948; 83036; 83605; 83690; 83735; 84443; 85025; 85610; 85730; 87040; 87086; 88305; 93005; 96360; J0696; J1815; J3480; J7030; J7040; J7120; L1830; Q9963

== ENCOUNTER 2016-05-18 16:24 | Emergency (ER) | payer MEDICARE, OTHER ==
[~2016-05-18] VITALS: Ht 177.8 cm; Wt 70.0 kg
[~2016-05-18 16:24] MED LIST changes: +BENT20TA PO; -CIPR-9 PO; +LACT10SO PO; +METO25TA3 PO; -MIRA33504 PO; -Z.0.NO CURRENT MEDS
[2016-05-18 16:29] VITALS: BP 123/81; PULSE 90; RESP 18; O2SAT 100
--- NOTE | 2016-05-18 17:41 | PD ---
HPI Chief Complaint: Complaint Time Seen by Provider: 17:41 Travel History International Travel<30 days: No Contact w/Intl Traveler<30days: No Traveled to known affect area: No History of Present Illness HPI 81-year-old male with history of urinary retention, with Goyal catheter in place , presents to emergency department for decreased output in his Goyal catheter. Patient appears well and that stress. Denies fever or chills. Denies any abdominal pain. States he does have a scheduled follow-up with a urologist. Has no other symptoms to report this time PFSH Past Medical History Arthritis: Yes Asthma: No Autoimmune Disease: No Blood Disorders: No Heart Rhythm Problems: No Cancer: No High Cholesterol: Yes Chest Pain: Yes Congestive Heart Failure: No COPD: Yes Cerebrovascular Accident: No Diabetes: Yes Patient Takes Glucophage: Yes Diminished Hearing: Yes Endocrine: Yes Gastrointestinal Disorders: Yes (TROUBLE SWALLOWING - DYSPHAGIA) GERD: Yes Genitourinary: Yes Headaches: No Hepatitis: No Hiatal Hernia: Yes Hypertension: Yes Kidney Stones: Yes Neurologic: No Psychiatric: No Respiratory: Yes (emphysema ) Immunizations Current: Yes Myocardial Infarction: Yes ([id number]) Seizures: No Sickle Cell Disease: No Sleep Apnea: No Ulcer: Yes (ESOPHAGEAL ULCERS - 1992) Tetanus Vaccination: < 5 Years Influenza Vaccination: Yes Past Surgical History Abdominal Surgery: No AICD: No Cardiac Surgery: No Ear Surgery: No Endocrine Surgery: No Eye Surgery: No Genitourinary Surgery: No Gynecologic Surgery: No Oral Surgery: Yes (JAW REPAIR 1969) Pacemaker: No Thoracic Surgery: No Other Surgery: Yes (ULCERS REMOVED FROM ESOPHAGUS 1992, POLYPS REMOVED FROM COLON 1992) Social History Alcohol Use: Yes (HARD LIQUOR - 1/5 DAILY 10 YEARS AGO. NOW OCCASSIONALLY.) Tobacco Use: Yes (SMOKE CIGARRETTES 1 PPD X 30 YEARS - SMOKES 3 TO 4 CIGARETTES DAILY NOW.) Substance Use: No Allergies-Medications (Allergen,Severity, Reaction): Coded Allergies: No Known Allergies (Verified , 05/06/16) Reported Meds & Prescriptions Reported Meds & Active Scripts Active Bentyl (Dicyclomine HCl) 20 Mg Tab 20 Mg PO TID Lactulose Liq (Lactulose) 10 Gm/15 Ml Soln 30 Ml PO Q6H PRN 30 Days Flomax (Tamsulosin HCl) 0.4 Mg Cap 0.4 Mg PO HS Reported Metoprolol Tartrate 25 Mg Tab 25 Mg PO BID Review of Systems Except as stated in HPI: all other systems reviewed are Neg Physical Exam Narrative GENERAL: Well-nourished, well-developed elderly male patient, in no acute distress SKIN: Warm and dry. HEAD: Normocephalic. Atraumatic EYES: No scleral icterus. No injection or drainage. NECK: Supple, trachea midline. No JVD or lymphadenopathy. CARDIOVASCULAR: Regular rate and rhythm without murmurs, gallops, or rubs. RESPIRATORY: Breath sounds equal bilaterally. No accessory muscle use. Abdomen: Abdomen soft, non-tender, nondistended. Positive bowel sounds. No hepato-splenomegaly, or palpable masses. No guarding. Patient does have Goyal catheter in place. It is draining clear yellow urine. MUSCULOSKELETAL: No cyanosis, or edema. BACK: Nontender without obvious deformity. No CVA tenderness. Data Data Last Documented VS Vital Signs Date Time Temp Pulse Resp B/P Pulse Ox O2 Delivery O2 Flow Rate FiO2 05/18/16 16:29 90 18 123/81 100 MDM Medical Decision Making Medical Screen Exam Complete: Yes Emergency Medical Condition: Yes Medical Record Reviewed: Yes Differential Diagnosis Urinary infection versus Goyal catheter obstruction versus urinary retention Narrative Course 81-year-old male presents to emergency department for evaluation of decreased urinary output. Patient's Goyal catheter is intact, in place, draining clear yellow urine. Patient is otherwise asymptomatic. Vital signs stable. Oral temperature taken by myself is 98.4. I have showed the patient. he has no symptoms at this time. He verbalized much satisfaction the fact that after draining. He is ready to be discharged. He is to keep his follow-up with his urologist which he cannot remember the name of. He agrees to return immediately with any acute worsening. Diagnosis Primary Impression: Urinary retention Additional Impression: Goyal catheter in place Referrals: Primary Care Physician Urologist Patient Instructions: Goyal Catheter Placement and Care (ED), General Instructions Additional Instructions: Follow up with your urologist Continue goyal care as directed Return to ED with acute worsening of symptoms Med/Other Pt SpecificInfo: No Change to Meds Disposition: 01 DISCHARGE HOME Condition: Stable Alfreda Lewis May 18, 2016 17:41
== END 2016-05-18 18:43 | disposition home or self-care (01) ==
LOC: NEDAMB 16:24
DX: R33.9 Retention of urine, unspecified (principal)
CPT/HCPCS: 99283

== ENCOUNTER 2016-05-27 13:31 | Observation (INO) | payer MEDICARE, OTHER ==
[~2016-05-27] VITALS: Ht 177.8 cm; Wt 80.0 kg
[2016-05-27 13:53] VITALS: BP 184/74; PULSE 100; RESP 20; TEMP 98.4; O2SAT 96
[2016-05-27] MEDS ORDERED: SODIUM CHLOR 0.9% 1000 ML INJ 1,000 ML IV ONE (17:00)
[2016-05-27] MEDS ORDERED: CLINDAMYCIN INJ 600 MG in SODIUM CHLORIDE 0.9% INJ 100 ML IV ONE (17:00)
[2016-05-27] MEDS ORDERED: KETOROLAC TROMETHAMINE 30 MG/ML (IVP) VIAL IV PUSH ONE (17:00)
--- NOTE | 2016-05-27 17:02 | PD ---
HPI Chief Complaint: GI Complaint Time Seen by Provider: 16:37 Travel History International Travel<30 days: No Contact w/Intl Traveler<30days: No Traveled to known affect area: No History of Present Illness HPI 81yo M with PMH of COPD presents to the ED with 2 complaints. Pt's main complaint is pain in right inner thigh, dark urine. Pt states he had goyal catheter for 3 weeks and has not been able to follow up with urology as outpatient. Pt was admitted 05/06/16-05/14/16 for urinary retention and sepsis. Pt was here again on 05/18/16 for decreased output in goyal catheter. Denies any fever, chest pain, n/v, abdominal pain, focal weakness or numbness. Pt also with sob for 1 week that seems worst than his normal sob. +Cough. PFSH Past Medical History Arthritis: Yes Asthma: No Autoimmune Disease: No Blood Disorders: No Heart Rhythm Problems: No Cancer: No High Cholesterol: Yes Chest Pain: Yes Congestive Heart Failure: No COPD: Yes Cerebrovascular Accident: No Diabetes: Yes Patient Takes Glucophage: No Diminished Hearing: Yes Endocrine: Yes Gastrointestinal Disorders: Yes (TROUBLE SWALLOWING - DYSPHAGIA) GERD: Yes Genitourinary: Yes Headaches: No Hepatitis: No Hiatal Hernia: Yes Hypertension: Yes Kidney Stones: Yes Neurologic: No Psychiatric: No Respiratory: Yes (emphysema ) Immunizations Current: Yes Myocardial Infarction: Yes ([id number]) Seizures: No Sickle Cell Disease: No Sleep Apnea: No Ulcer: Yes (ESOPHAGEAL ULCERS - 1992) Past Surgical History Abdominal Surgery: No AICD: No Cardiac Surgery: No Ear Surgery: No Endocrine Surgery: No Eye Surgery: No Genitourinary Surgery: No Gynecologic Surgery: No Oral Surgery: Yes (JAW REPAIR 1969) Pacemaker: No Thoracic Surgery: No Other Surgery: Yes (ULCERS REMOVED FROM ESOPHAGUS 1992, POLYPS REMOVED FROM COLON 1992) Social History Alcohol Use: Yes (HARD LIQUOR - 1/5 DAILY 10 YEARS AGO. NOW OCCASSIONALLY.) Tobacco Use: Yes (SMOKE CIGARRETTES 1 PPD X 30 YEARS - SMOKES 3 TO 4 CIGARETTES DAILY NOW.) Substance Use: No Allergies-Medications (Allergen,Severity, Reaction): Coded Allergies: No Known Allergies (Verified , 05/27/16) Reported Meds & Prescriptions Reported Meds & Active Scripts Active Flomax (Tamsulosin HCl) 0.4 Mg Cap 0.4 Mg PO HS Reported Metformin (Metformin HCl) Unknown Strength Tab Unknown Dose PO BIDPC With meals Naprosyn (Naproxen) 500 Mg Tab 500 Mg PO BID PRN Metoclopramide (Metoclopramide HCl) 10 Mg Tab 10 Mg PO BID Pravastatin 40 Mg Tab 40 Mg PO HS Metoprolol Tartrate 25 Mg Tab 25 Mg PO BID Review of Systems Except as stated in HPI: all other systems reviewed are Neg Physical Exam Narrative GENERAL: 81yo M not in distress. SKIN: Warm and dry. HEAD: Atraumatic. Normocephalic. EYES: Pupils equal and round. No scleral icterus. No injection or drainage. ENT: No nasal bleeding or discharge. Mucous membranes pink and moist. NECK: Trachea midline. No JVD. CARDIOVASCULAR: Regular rate and rhythm. No murmur appreciated. RESPIRATORY: No accessory muscle use. Clear to auscultation. Breath sounds equal bilaterally. GASTROINTESTINAL: Abdomen soft, non-tender, nondistended. No rebound tenderness or guarding. : +Small superficial ulcer on penis. Erythema right thigh, foul smelling. MUSCULOSKELETAL: No obvious deformities. No clubbing. No cyanosis. No edema. NEUROLOGICAL: Awake and alert. No obvious cranial nerve deficits. Motor grossly within normal limits. Normal speech. PSYCHIATRIC: Appropriate mood and affect; insight and judgment normal. Data Data Last Documented VS Vital Signs Date Time Temp Pulse Resp B/P Pulse Ox O2 Delivery O2 Flow Rate FiO2 05/27/16 18:00 83 18 188/81 97 Room Air 05/27/16 13:53 98.4 Orders Complete Blood Count With Diff (05/27/16 16:52) Basic Metabolic Panel (Bmp) (05/27/16 16:52) Lactic Acid Sepsis Protocol (05/27/16 16:52) Ketorolac Inj (Toradol Inj) (05/27/16 17:00) Urinalysis - C+S If Indicated (05/27/16 16:53) Blood Culture (05/27/16 16:53) Electrocardiogram (05/27/16 ) Troponin I (05/27/16 16:53) Chest, Single Ap (05/27/16 ) Clindamycin Inj (Cleocin Inj) (05/27/16 17:00) Sodium Chlor 0.9% 1000 Ml Inj (Ns 1000 M (05/27/16 17:00) Ct Abd/Pel W Iv Contrast(Rout) (05/27/16 ) Urine Culture (05/27/16 17:00) Ceftriaxone Inj (Rocephin Inj) (05/27/16 18:45) Nystatin Cream (Mycostatin Cream) (05/27/16 18:45) Admit Order (Ed Use Only) (05/27/16 19:10) Labs Laboratory Tests Test 05/27/16 17:00 White Blood Count 11.5 TH/MM3 Red Blood Count 4.23 MIL/MM3 Hemoglobin 11.7 GM/DL Hematocrit 36.1 % Mean Corpuscular Volume 85.2 FL Mean Corpuscular Hemoglobin 27.7 PG Mean Corpuscular Hemoglobin 32.5 % Concent Red Cell Distribution Width 14.3 % Platelet Count 330 TH/MM3 Mean Platelet Volume 9.4 FL Neutrophils (%) (Auto) 73.0 % Lymphocytes (%) (Auto) 14.3 % Monocytes (%) (Auto) 12.2 % Eosinophils (%) (Auto) 0.1 % Basophils (%) (Auto) 0.4 % Neutrophils # (Auto) 8.4 TH/MM3 Lymphocytes # (Auto) 1.7 TH/MM3 Monocytes # (Auto) 1.4 TH/MM3 Eosinophils # (Auto) 0.0 TH/MM3 Basophils # (Auto) 0.0 TH/MM3 CBC Comment DIFF FINAL Differential Comment Urine Color LIGHT-RED Urine Turbidity HAZY Urine pH 6.0 Urine Specific [place] 1.023 Urine Protein 100 mg/dL Urine Glucose (UA) NEG mg/dL Urine Ketones NEG mg/dL Urine Occult Blood LARGE Urine Nitrite NEG Urine Bilirubin NEG Urine Urobilinogen 2.0 MG/DL Urine Leukocyte Esterase MOD Urine RBC /hpf Urine WBC 62 /hpf Urine WBC Clumps OCC Urine Squamous Epithelial 1 /hpf Cells Urine Bacteria RARE /hpf Urine Mucus FEW /lpf Urine Yeast (Budding) MANY Microscopic Urinalysis Comment CATH-CULTURE IND Sodium Level 135 MEQ/L Potassium Level 4.3 MEQ/L Chloride Level 101 MEQ/L Carbon Dioxide Level 26.2 MEQ/L Anion Gap 8 MEQ/L Blood Urea Nitrogen 9 MG/DL Creatinine 1.05 MG/DL Estimat Glomerular Filtration 68 ML/MIN Rate Random Glucose 103 MG/DL Lactic Acid Level 1.0 mmol/L Calcium Level 9.3 MG/DL Troponin I LESS THAN 0.02 NG/ML MDM Medical Decision Making Medical Screen Exam Complete: Yes Emergency Medical Condition: Yes Interpretation(s) EKG: NSR 79bpm with 1st AV block. TWI V4-V6. Normal axis. Q wave II, III, aVF. Differential Diagnosis Sepsis secondary to UTI vs. PNA vs. COPD exacerbation vs. skin irritation from goyal vs. cellulitis vs. temo Narrative Course 81yo M with tachycardia and tachypneic at initial triage VS here with c/o pain in right thigh after having goyal catheter in it for at least 3 weeks. Pt is a poor historian and states he has not follow up with urology because of insurance issue. Labs reviewed, mild leukocytosis at 11.5. Troponin negative. Lactic acid 1.0. UA showed large leukocyte and 62 WBC. NS IVF x1 given. Pt given ceftriaxone and nystatin cream. Pt was also initially given clindamycin for possible cellulitis. CXR showed hyperinflation, otherwise negative. Pt reevaluated at bedside after toradol and still has a lot of pain. Will give morphine and admit pt for IV antibiotics. Discussed with family service assistant and accepted. Diagnosis Primary Impression: UTI (urinary tract infection) Qualified Code: N39.0 - Urinary tract infection with hematuria, site unspecified Admitting Information Admitting Physician Requests: Admit Marcy Lo DO May 27, 2016 17:02
[2016-05-27 17:52] LABS: AUTOMATED NEUTROPHIL # 8.4 TH/MM3 (1.8-7.7); BASOPHIL % 0.4 % (0.0-2.0); EOSINOPHIL % 0.1 % (0.0-4.0); HEMATOCRIT 36.1 % (39.0-51.0); HEMO FLAGS DIFF FINAL; LYMPH % 14.3 % (9.0-44.0); LYMPHOCYTE # 1.7 TH/MM3 (1.0-4.8); MEAN CELL VOLUME 85.2 FL (80.0-100.0); MEAN CORPUSCULAR HEMOGLOBIN 27.7 PG (27.0-34.0); MEAN CORPUSCULAR HGB CONC 32.5 % (32.0-36.0); MONO % 12.2 % (0.0-8.0); PLATELET COUNT 330 TH/MM3 (150-450); RED BLOOD COUNT 4.23 MIL/MM3 (4.50-5.90); RED CELL DISTRIBUTION WIDTH 14.3 % (11.6-17.2); WHITE BLOOD COUNT 11.5 TH/MM3 (4.0-11.0)
--- NOTE | 2016-05-27 17:55 | RADRPT ---
EXAM DATE/TIME: 05/27/2016 17:12 [facility] COMPARISON: CHEST SINGLE AP, May 06, 2016, 3:08. INDICATIONS : Shortness of breath. MEDICAL HISTORY : Emphysema. SURGICAL HISTORY : CABG. ENCOUNTER: Initial ACUITY: 1 day PAIN SCORE: 0/10 LOCATION: Bilateral chest FINDINGS: The lungs are hyperinflated. Sternal wires are noted from previous bypass. Heart and pulmonary vasc ularity are normal. Portions of the bony skeleton visualized are unremarkable. CONCLUSION: Hyperinflation otherwise negative. Fabio Barton MD FACR on May 27, 2016 at 17:47 Board Certified Radiologist. This report was verified electronically.
[2016-05-27 18:00] VITALS: BP 188/81; PULSE 83; RESP 18; O2SAT 97
[2016-05-27 18:02] LABS: BICARBONATE 26.2 MEQ/L (21.0-32.0); POTASSIUM 4.3 MEQ/L (3.5-5.1)
[2016-05-27 18:13] LABS: BACTERIA, URINE RARE /hpf; BLOOD, URINE LARGE (NEG); GLUCOSE,URINE NEG (NEG); KETONE, URINE NEG (NEG); MUCUS URINE FEW /lpf (OCC); NITRITE,URINE NEG (NEG); SQUAMOUS EPITHELIAL CELL URINE 1 /hpf (0-5)
[2016-05-27] MEDS ORDERED: NAPR500 PO (18:14)
[2016-05-27] MEDS ORDERED: METO10TA PO (18:14)
[2016-05-27] MEDS ORDERED: PRAV40TA2 PO (18:14)
[2016-05-27] MEDS ORDERED: METF500T PO (18:14)
[2016-05-27 18:19] LABS: COMMENT (UR) CATH-CULTURE IND; CULTURE IF INDICATED CATH CULTURE IND; URINE COLOR LIGHT-RED (YELLW/STRAW)
[2016-05-27] MEDS ORDERED: NYSTATIN 100,000 UNIT/GM CREAM 15 GM TOPICAL ONE (18:45)
[2016-05-27] MEDS ORDERED: cefTRIAXone INJ 1,000 MG in SODIUM CHLORIDE 0.9% INJ 100 ML IV ONE (18:45)
[2016-05-27] MEDS ORDERED: NALOXONE HCL 0.4 MG/ML AMP IV PRN (20:30)
[2016-05-27] MEDS ORDERED: SODIUM CHLORIDE 0.9% FLUSH 5 ML FLUSH FLUSH PRN ×2 (20:30→21:45)
--- NOTE | 2016-05-27 21:06 | HHI.HP ---
HPI [facility] Primary Care Physician No Primary Care Physician Admission Diagnosis Sepsis secondary to UTI Diagnoses: International Travel<30 Days: No Contact w/Intl Traveler<30days: No Known Affected Area: No History of Present Illness Mr. Meneses is a 81 y/o M with a PMHx of HTN, emphysema, DM, ACS s/p CABG, and heart valve replacement presenting with decreased urinary output, hematuria, and rash. He was recently hospitalized from 05/07/16-05/14/16 for urosepsis, acute urinary retention, and severe constipation. He was discharged home on Reglan and Flomax with a Degroot catheter. He was to follow-up with both GI and urology, but has not done so due to no insurance coverage. Patient was then again seen on 05/18/16 for urinary retention in the ER. He was discharged home without medical intervention. At his baseline he empties his Degroot bag approximately 6 times per day of straw-colored, clear urine. He presents today with decreased urinary output over the last 24 hours with one episode of hematuria. He is only having to empty his Degroot bag once today and noticed a blood colored tinge to the urine. He is also noticed increased pain in his penis he believes is due to the Degroot catheter. He denies any discharge or blood coming from his urethral meatus. He states that his Degroot catheter has not been changed since his hospitalization approximately 2 weeks ago. He reports that he has been drinking water regularly with up to 12 glasses per day. He has developed a pruritic rash in his right groin yesterday ranging from his mid thigh to his penis. He states this area has "opened up and started to bleed." When discussing his bowel movements, he states that he has not had a good solid bowel movement since his discharge from the hospital 2 weeks ago. His recent BM have been nonbloody liquid consistency with a small amount of fecal material. He has been having some fecal incontinence of mostly liquid stool over the last 2 weeks. He was discharged home on Reglan from his previous hospitalization, however he has been unable to fill his prescription. His only other compliant is mild SOB he attributes to his emphysema. He denies any fevers , chills, headaches, chest pain, NV, or calf tenderness. Review of Systems Constitutional: DENIES: Fever Endocrine: DENIES: Polyuria Eyes: DENIES: Blurred vision Ears, nose, mouth, throat: DENIES: Tinnitus, Vertigo Respiratory: COMPLAINS OF: Shortness of breath (emphysema ), DENIES: Cough Cardiovascular: DENIES: Chest pain, Palpitations Gastrointestinal: COMPLAINS OF: Diarrhea, DENIES: Black stools, Bloody stools , Nausea, Vomiting Genitourinary: COMPLAINS OF: Hematuria, DENIES: Penile Discharge Musculoskeletal: DENIES: Muscle aches Integumentary: COMPLAINS OF: Pruritus, Rash Hematologic/lymphatic: DENIES: Lymphadenopathy Immunologic/allergic: DENIES: Urticaria Neurologic: DENIES: Headache Psychiatric: DENIES: Mood changes Past Family Social History Past Medical History Emphysema Urinary retention Diabetes Heart valve replaced - currently not on anticoagulation, not seen by cardiology , unaware of which valve or type HTN HPLD Osteoarthritis Gastric ulcers CAD with CABG Past Surgical History Hip replacement Heart valve replacement Colonoscopy with polypectomy on last hospitalization CABG Allergies: Coded Allergies: No Known Allergies (Verified , 05/27/16) Family History Mother - stroke, unknown cardiac problems Father - unknown Social History Incarcerated for 8 years and released on 04/28/16, currently on probation. Staying in a Hotel on [address] (housing for citizens on probation) . Currently with no insurance and is unemployed. Alcohol - None, history of 3-4 drinks per day at the most approximately 8 years ago Smoke - <1/2 ppd for approximately 50 years Illicit - denies illicit drugs or marijuana Physical Exam Vital Signs Vital Signs Date Time Temp Pulse Resp B/P Pulse Ox O2 Delivery O2 Flow Rate FiO2 05/27/16 18:00 83 18 188/81 97 Room Air 05/27/16 13:53 98.4 100 20 184/74 96 Room Air Physical Exam GENERAL: 81 y/o M lying in bed in no acute distress; patient states he is not currently in pain. SKIN: No rashes or ecchymosis. Cool and dry. Please see urogenital exam. HEENT: Atraumatic, normocephalic with EOMI. Oropharynx clear with no erythema or exudates. Mucus membranes dry. No rhinorrhea. CARDIOVASCULAR: RRR with no MGR. RESPIRATORY: CTAB with no CRW. No increased WOB. GASTROINTESTINAL: Abdomen soft, non-tender, nondistended with +BS. MUSCULOSKELETAL: Extremities without cyanosis or edema. No calf tenderness. No CVA tenderness. UROGENITAL: Uncircumcised penis with open, circular 2cm lesion on the superior, R lateral side of the foreskin. Urethral meatus erythematous and TTP. Meatus currently draining mucopurulent fluid which was cultured by swab. Scrotum erythematous with 2 testicles palpated without masses. Degroot catheter in place with approximately 800ml of dark, brown colored urine with sediment in Degroot bag. Erythema and warmth with skin breakdown on R medial thigh ranging from the mid-thigh to scrotum currently draining serosanguineous fluid. Erythema marked with surgical pen. Perineum appears to be not involved with current infection. Patient denies suprapubic tenderness. NEUROLOGICAL: AAOx3. No obvious deformities. Motor and sensory grossly within normal limits. Five out of 5 muscle strength in all muscle groups. Speech is slowed, but mentation intact. Laboratory Laboratory Tests Test 05/27/16 17:00 White Blood Count 11.5 Red Blood Count 4.23 Hemoglobin 11.7 Hematocrit 36.1 Mean Corpuscular Volume 85.2 Mean Corpuscular Hemoglobin 27.7 Mean Corpuscular Hemoglobin 32.5 Concent Red Cell Distribution Width 14.3 Platelet Count 330 Mean Platelet Volume 9.4 Neutrophils (%) (Auto) 73.0 Lymphocytes (%) (Auto) 14.3 Monocytes (%) (Auto) 12.2 Eosinophils (%) (Auto) 0.1 Basophils (%) (Auto) 0.4 Neutrophils # (Auto) 8.4 Lymphocytes # (Auto) 1.7 Monocytes # (Auto) 1.4 Eosinophils # (Auto) 0.0 Basophils # (Auto) 0.0 CBC Comment DIFF FINAL Differential Comment Urine Color LIGHT-RED Urine Turbidity HAZY Urine pH 6.0 Urine Specific [place] 1.023 Urine Protein 100 Urine Glucose (UA) NEG Urine Ketones NEG Urine Occult Blood LARGE Urine Nitrite NEG Urine Bilirubin NEG Urine Urobilinogen 2.0 Urine Leukocyte Esterase MOD Urine RBC Urine WBC 62 Urine WBC Clumps OCC Urine Squamous Epithelial 1 Cells Urine Bacteria RARE Urine Mucus FEW Urine Yeast (Budding) MANY Microscopic Urinalysis Comment CATH-CULTURE IND Sodium Level 135 Potassium Level 4.3 Chloride Level 101 Carbon Dioxide Level 26.2 Anion Gap 8 Blood Urea Nitrogen 9 Creatinine 1.05 Estimat Glomerular Filtration 68 Rate Random Glucose 103 Lactic Acid Level 1.0 Calcium Level 9.3 Troponin I LESS THAN 0.02 Date/Time Procedure Status Source Growth 05/27/16 17:05 Aerobic Blood Culture Received Blood Peripheral Pending 05/27/16 17:05 Anaerobic Blood Culture Received Blood Peripheral Pending 05/27/16 17:00 Urine Culture Received Urine Catheterized Urine Pending Result Diagram: 05/27/16 1700 05/27/16 1700 Assessment and Plan Assessment and Plan Mr. Meneses is a 81 y/o M with a PMHx of HTN, emphysema, DM, ACS s/p CABG, and heart valve replacement presenting with decreased urinary output, hematuria, and rash due to complicated cystitis. Code Status Full Discussed Condition With DW: Dr. Lo and Dr. Jefferson Problem List: (1) Complicated UTI (urinary tract infection) Status: Acute Plan: Patient recently hospitalized for urinary retention and constipation discharged home with Degroot catheter. Patient now presenting with complicated UTI and cellulitis of the right groin. Patient currently does not meet sepsis criteria. CT abdomen and pelvis: Bladder wall thickening. Indeterminate renal lesion seen more notably along the lower pole of the left kidney measuring 1.5 cm. This could be related to a complex cyst, however a solid lesion cannot be excluded. This is unchanged from prior study. Bilateral renal cysts. Hiatal hernia and wall thickening within the stomach. Endoscopy may be warranted. CXR: Hyperinflated consistent with emphysema, otherwise unremarkable per medical team's read CBC: WBC 11.5, H/H is 11.7/36.1, platelets 330 BMP: Sodium 135, GFR 68 otherwise unremarkable Lactic acid: 1.0 Troponin: <0.02 UA: Light red, hazy, protein 100, large occult blood, moderate leukocyte esterase, 62 white blood cells with clumps, rare bacteria, many yeast, culture indicated Urine culture: Pending Blood culture 2: Pending Wound culture: Pending Gonorrhea and chlamydia: Pending Toradol, clindamycin, Rocephin, and nystatin cream given once in ER Tylenol 650 mg by mouth every 4 hours when necessary for pain greater than 100.4 Vancomycin 1.5 g twice a day and cefepime 2 g twice a day for antibacterial coverage Fluconazole 200 mg daily for antifungal coverage Maintenance fluids of normal saline at 120 mL per hour Consult urology (2) Cellulitis Status: Acute Plan: Patient presenting with right inner thigh and groin cellulitis. Erythema on the right medial thigh outlined with surgical marker on 05/27/16. Tylenol 650 mg by mouth every 4 hours when necessary for pain greater than 100.4 Vancomycin 1.5 g twice a day and cefepime 2 g twice a day for antibacterial coverage (possible heart valve) Fluconazole 200 mg daily for antifungal coverage Nystatin ointment to be applied to the affected area 3 times a day (3) Degroot catheter in place Status: Acute Plan: Patient with recent hospitalization for urinary retention and constipation discharged home with Degroot catheter. Nursing order to exchange Degroot catheter Please see plan as above for complicated UTI (4) Hematuria Status: Acute Plan: Patient with reported 1 episode of hematuria CBC: H/H 11.7/36.1, continue to monitor with daily labs Please see plan as above for complicated UTI (5) Constipation Status: Acute Plan: Patient with recent hospitalization for constipation s/p colonoscopy with polypectomy. Patient reports recent history of small bowel movements with nonbloody diarrhea. Continue home Reglan 10 mg twice a day Magnesium hydroxide 30 mg twice a day when necessary for constipation Dulcolax suppository 10 mg daily when necessary for constipation (6) Emphysema/COPD Status: Chronic Plan: Patient with reported history of emphysema currently not on medical management DuoNeb 1 amp every 6 hours when necessary for shortness of breath or wheezing (7) HTN (hypertension) Status: Chronic Plan: Patient with reported chronic hypertension Continue home metoprolol 25 mg twice a day (8) Osteoarthritis Status: Chronic Plan: Patient with reported history of osteoarthritis. Currently without complaints. Hold home naproxen Continue to monitor (9) Hyperlipemia Status: Chronic Plan: Patient with reported hyperlipidemia and ACS s/p CABG Continue pravastatin 40 mg daily at bedtime (10) Diabetes mellitus Status: Chronic Plan: Patient with reported history of diabetes mellitus. He is unable to provide medical team with documented blood sugars, stating that is "mild." Hold home metformin SSI and Accu-Cheks per protocol (11) History of artificial heart valve Status: Chronic Plan: Patient with reported history of artificial heart valve. Patient unaware of which valve or type of valve implanted. Per chart review no record of artificial heart valve Currently not on anticoagulation or seen by cardiology Defer medical anticoagulation at this time due to patient reported hematuria without documentation of artificial heart valve (12) No contraindication to deep vein thrombosis (DVT) prophylaxis Status: Acute Plan: Defer medical DVT prophylaxis at this time due to patient reported hematuria SCD/TEDs (13) Nutrition, metabolism, and development symptoms Status: Acute Plan: Diet: Diabetic diet Fluids: Maintenance fluids of normal saline at 120 mils per hour Electrolytes: Unremarkable, continue to monitor Degroot: Nursing order to replace Degroot and continue to monitor I/Os Louie Wren MD R1 May 27, 2016 21:06
[2016-05-27] MEDS: SODIUM CHLORIDE 0.9% FLUSH 5 ML FLUSH FLUSH SCH (21:45)
[2016-05-27] MEDS ORDERED: MAGNESIUM HYDROXIDE SUSP 30 ML CUP PO PRN (21:45)
[2016-05-27] MEDS ORDERED: BISACODYL 10 MG SUPP PR PRN (21:45)
[2016-05-27] MEDS ORDERED: DEXTROSE 50% IN WATER 50 ML VIAL(D50) IV PUSH PRN (21:45)
[2016-05-27] MEDS ORDERED: ACETAMINOPHEN 325 MG TAB PO PRN (21:45)
[2016-05-27] MEDS ORDERED: Vancomycin Consult Pharmacy 1 EA OTHER SCH (22:15)
[2016-05-27] MEDS ORDERED: VANCOMYCIN INJ 1,250 MG in SODIUM CHLOR 0.9% 250 ML INJ 250 ML IV SCH (22:15)
[2016-05-27] MEDS ORDERED: IOHEXOL 350 MG/ML 10 ML VIAL (for RAD DIAG) IV ONE (22:22)
--- NOTE | 2016-05-27 22:39 | RADRPT ---
EXAM DATE/TIME: 05/27/2016 22:11 [facility] COMPARISON: CT ABDOMEN & PELVIS W/O CONTRAST, May 06, 2016, 4:41. CT ABDOMEN & PELVIS W/O CONTRAST, May 12, 2016, 1:14. INDICATIONS : Right inner thigh pain with decreased urine output. IV CONTRAST: 70 cc Omnipaque 350 (iohexol) IV ORAL CONTRAST: No oral contrast ingested. RADIATION DOSE: 13.82 CTDIvol (mGy) MEDICAL HISTORY : Hypertension. Diabetes mellitus type 2. Chronic obstructive pulmonary disease.Esophageal ulcers; GERD ; hiatal hernia; renal stone. SURGICAL HISTORY : Right hip replacement. ENCOUNTER: Initial ACUITY: 1 day PAIN SCALE: 5/10 LOCATION: Right Abdomen/pelvis TECHNIQUE: Volumetric scanning of the abdomen and pelvis was performed. Using automated exposure control and ad justment of the mA and/or kV according to patient size, radiation dose was kept as low as reasonably achievable to obtain optimal diagnostic quality images. FINDINGS: LOWER LUNGS: The visualized lower lungs are clear. LIVER: Homogeneous density without lesion. There is no dilation of the biliary tree. No calcified gallston es. SPLEEN: Normal size without lesion. PANCREAS: Within normal limits. KIDNEYS: Normal in size and shape. There is no stone or hydronephrosis. Complex low density lesion likely cys t along the lower pole right kidney measures 2.8 cm and contains minimal calcification. Indeterminate lesion along the lower pole left kidney measures 1.5 cm. Other bilateral renal low densities are see n. ADRENAL GLANDS: Within normal limits. VASCULAR: There is no aortic aneurysm. Stent within the lower thoracic and upper lumbar aorta. BOWEL/MESENTERY: There is wall thickening within the stomach and hiatal hernia.. There is no free intraperitoneal air or fluid. ABDOMINAL WALL: Within normal limits. RETROPERITONEUM: There is no lymphadenopathy. BLADDER: Bladder wall thickening. Degroot catheter present. There is air in the bladder, likely iatrogenic.. REPRODUCTIVE: Within normal limits. INGUINAL: There is no lymphadenopathy or hernia. MUSCULOSKELETAL: Right hip prosthesis. CONCLUSION: 1. Bladder wall thickening. 2. Indeterminant renal lesion seen more notably along the lower pole left kidney measuring 1.5 cm. Th is could be related to a complex cyst however a solid lesion cannot be excluded. This is unchanged fr om prior studies. 3. Bilateral renal cysts. 4. Hiatal hernia and wall thickening within the stomach. Endoscopy may be warranted. Tim Peck MD on May 27, 2016 at 22:31 Board Certified Radiologist. This report was verified electronically.
[2016-05-27 23:00] VITALS: BP 110/56; PULSE 64; RESP 18; TEMP 98; O2SAT 97
[2016-05-28] MEDS ORDERED: RESP: ALBUTEROL 2.5 MG/IPRATROPIUM 0.5 MG NEB (PRN) NEB (00:15)
[2016-05-28] MEDS: SODIUM CHLOR 0.9% 1000 ML INJ 1,000 ML IV SCH ×4 (00:22→23:45)
[2016-05-28] MEDS: TAMSULOSIN HCL 0.4 MG CAP PO SCH ×2 (00:23→21:15)
[2016-05-28] MEDS: METOPROLOL TARTRATE 25 MG TAB PO SCH ×3 (00:23→21:16)
[2016-05-28] MEDS: CEFEPIME INJ 2,000 MG in SODIUM CHLORIDE 0.9% INJ 100 ML IV SCH ×3 (00:23→23:16)
[2016-05-28] MEDS: PRAVASTATIN SOD 40 MG TAB PO SCH ×2 (00:23→21:15)
[2016-05-28] MEDS: METOCLOPRAMIDE HCL 10 MG TAB PO SCH ×3 (00:24→21:16)
[2016-05-28] MEDS: SODIUM CHLORIDE 0.9% FLUSH 5 ML FLUSH FLUSH SCH ×5 (00:24→21:00)
[2016-05-28] MEDS ORDERED: ENALAPRILAT 1.25 MG/ML VIAL IV PRN (01:15)
[2016-05-28 01:18] VITALS: BP 126/68; PULSE 78; RESP 18; TEMP 98.1; O2SAT 97
[2016-05-28] MEDS: NYSTATIN 100,000 U/GM OINT 15 GM TUBE TOPICAL SCH ×2 (01:25→06:05)
[2016-05-28] MEDS: VANCOMYCIN 1,500 MG/NS 500 ML IV SCH ×4 (01:26→19:25)
[2016-05-28 03:27] LABS: CHLAMYDIA PCR NOT DETECTED (NOT DETECT); NEISSERIA PCR NOT DETECTED (NOT DETECT)
[2016-05-28] MEDS: FLUCONAZOLE 200 MG PREMIX BAG 100 ML IV SCH (03:39)
[2016-05-28 05:23] VITALS: BP 151/76; PULSE 77; RESP 16; TEMP 98.4; O2SAT 96
[2016-05-28] MEDS: INSULIN ASPART SUPPLEMENTAL SCALE SQ SCH ×4 (06:52→21:00)
[2016-05-28 07:47] LABS: BASOPHIL % 0.5 % (0.0-2.0); EOSINOPHIL # 0.1 TH/MM3 (0-0.4); EOSINOPHIL % 1.3 % (0.0-4.0); HEMATOCRIT 31.4 % (39.0-51.0); HEMO FLAGS DIFF FINAL; LYMPH % 23.5 % (9.0-44.0); LYMPHOCYTE # 1.9 TH/MM3 (1.0-4.8); MEAN CELL VOLUME 84.5 FL (80.0-100.0); MEAN CORPUSCULAR HEMOGLOBIN 28.5 PG (27.0-34.0); MEAN CORPUSCULAR HGB CONC 33.7 % (32.0-36.0); NEUT % 61.7 % (16.0-70.0); PLATELET COUNT 273 TH/MM3 (150-450); RED BLOOD COUNT 3.71 MIL/MM3 (4.50-5.90); RED CELL DISTRIBUTION WIDTH 14.5 % (11.6-17.2); WHITE BLOOD COUNT 8.2 TH/MM3 (4.0-11.0)
[2016-05-28 08:00] VITALS: BP 138/64; PULSE 76; RESP 16; TEMP 98.2; O2SAT 99
[2016-05-28 08:17] LABS: ALKALINE PHOSPHATASE 64 U/L (45-117); ALT (GPT) 20 U/L (12-78); ANION GAP 9 MEQ/L (5-15); AST (GOT) 17 U/L (15-37); BICARBONATE 21.4 MEQ/L (21.0-32.0); BLOOD UREA NITROGEN 9 MG/DL (7-18); CHLORIDE 105 MEQ/L (98-107); GLOMERULAR FILTRATION RATE 95 ML/MIN (>89); POTASSIUM 4.2 MEQ/L (3.5-5.1); SODIUM (NA) 135 MEQ/L (136-145); TOTAL BILIRUBIN ADULT 0.3 MG/DL (0.2-1.0)
--- NOTE | 2016-05-28 11:39 | HHI.FPPN ---
Subjective Remarks Overnight, SIERRA. Afebrile. HTN to 190/90, improved this morning. Breathing well on RA. Good I/O. Degroot in place draining clear yellow urine. C/o decreased urine output. Reassured that 1.8L output is adequate. Reports itchy R thigh. Wound on R thigh/penis still odorous, pustulant- erythema essentially unchanged from marked border yesterday. Denies f/v, n/v, SOB/CP, abd pain. (Symone Yan MD R1) Objective Vitals Vital Signs Date Time Temp Pulse Resp B/P Pulse Ox O2 Delivery O2 Flow Rate FiO2 05/28/16 05:23 98.4 77 16 151/76 96 05/28/16 01:18 98.1 78 18 126/68 97 05/27/16 23:00 98.0 64 18 110/56 97 05/27/16 18:00 83 18 188/81 97 Room Air 05/27/16 13:53 98.4 100 20 184/74 96 Room Air I/O 05/27/16 05/27/16 05/27/16 05/28/16 05/28/16 05/28/16 07:00 15:00 23:00 07:00 15:00 23:00 Intake Total 240 ml Output Total 1000 ml 850 ml Balance -1000 ml -610 ml Intake Oral 240 ml Output Urine Total 1000 ml 850 ml # Voids 2 # Bowel Movements 1 1 (Symone Yan MD R1) Result Diagram: 05/28/16 0600 05/28/16 0600 Imaging Last Impressions Abdomen/Pelvis CT 05/27/16 0000 Signed Impressions: Service Date/Time: Friday, May 27, 2016 22:11 - CONCLUSION: 1. Bladder wall thickening. 2. Indeterminant renal lesion seen more notably along the lower pole left kidney measuring 1.5 cm. This could be related to a complex cyst however a solid lesion cannot be excluded. This is unchanged from prior studies. 3. Bilateral renal cysts. 4. Hiatal hernia and wall thickening within the stomach. Endoscopy may be warranted. Tim Peck MD Objective Remarks CONST: Thin male in NAD DERM: Warm and dry HEENT: PERRL. CV: RRR. No murmurs or gallops. RESP: Breathing well on RA GI: NTND. +BS : Uncircumcised penis. Open, circular 2cm lesion R lateral foreskin. Urethral meatus erythematous, TTP, draining mucopurulent fluid. Scrotum erythematous R medial thigh from scrotum to mid-thigh- erythematous, warm, has skin breakdown. Also draining serosanguineous fluid. Erythema marked 05/27/16. Perineum not involved. Denies suprapubic tenderness. MSK: Moves all four limbs against gravity. NEURO: Motor and sensory function grossly intact. PSYCH: Slow speech, but appropriate. Poor insight. (Symone Yan MD R1) Urinary Catheter: Yes Assessment to: Continue Degroot insert reason: Obstruction/Retention Date of Insertion: May 27, 2016 (Symone Yan MD R1) Vascular Central Line Catheter: No (Symone Yan MD R1) A/P Assessment and Plan 81y male w HTN, DM2, and recent hospitalization for urosepsis hospitalized for complicated cystitis with hematuria. Discharge Planning 1-3 days, pending urology recommendations and response to antibiotics SDW: Dr. Mcelroy, Dr. Mak, Dr. Edwards, Dr Wren (Symone Yan MD R1) Attending Attestation Patient seen and examined. Case reviewed and discussed with the resident team, Dr Edwards, Dr Mak, Dr Yan and Dr Wren. Agree with plan of care as discussed with me and documented in the resident note (Andrew Mcelroy MD) Problem List: (1) Complicated UTI (urinary tract infection) Status: Acute Plan: Per U/A, presumed fungal UTI +/- bacteria, urine culture pending. Recently hospitalized Apr 2016 for urinary retention and constipation- d/c home w Degroot. Did not follow up with urology secondary to insurance issues. Will cover broad spec. Not meet sepsis criteria (05/13). WBC 11.5, no tachycardia, tachypnea, fever. S/p Degroot change 05/27/16 Plan -Urology consulted -Broad antibiotic coverage -Cefepime (05/27 - ) -Vanc 1.5g BID (05/27- ) + pharm consult -Fluconazole 200mg daily (05/27- ) -Follow cultures -Blood culture (05/27)- NG1D -Urine culture (05/27)- pending -Wound culture (05/27)- pending -Pain control -Tylenol PRN fever or pain (1-5) -Ibuprofen 600mg q4h pain (6-10) -MIVF Labs/Imaging Chlamydia, Gonorrhea, neg. Lactic acid, Trop x1, wnl. CT a/p: . Hiatal hernia. Bladder and stomach wall thickening. Renal lesion L kidney (complex cyst vs solid mass) 1.5 cm, unchanged from previous, as well as b/l renal cysts CXR: Hyperinflated consistent with emphysema U/A: large occult blood, mod LE, 62 WBC, many yeast, some bacteria, protein 100 (2) Cellulitis Status: Acute Plan: R inner thigh and groin cellulitis. Erythema outlined surgical marker . -Nystatin ointment TID to rash -Abx/pain management as above (3) Degroot catheter in place Status: Acute Plan: -see plan complicated UTI (4) Hematuria Status: Acute Plan: Secondary to complicated cystitis vs indeterminate renal mass (possibly a stone, but more likely a cyst) -Above transfusion threshold of 7 at present, monitor w daily CBCs (5) Constipation Status: Acute Plan: Hospitalized Apr 2016 for constipation. S/p colonoscopy with polypectomy. Reports incomplete evacuation of bowels with diarrhea. Continue home Reglan 10 mg BID Magnesium hydroxide 30 mg BID PRN Dulcolax suppository 10mg daily PRN constipation (6) Emphysema/COPD Status: Chronic Plan: Reported hx emphysema, not on medical management DuoNeb 1 amp q6h PRN SOB/Wheezing (7) HTN (hypertension) Status: Chronic Plan: Continue home metoprolol 25mg BID (8) Osteoarthritis Status: Chronic Plan: Hold home naproxen, continue to monitor (9) Hyperlipemia Status: Chronic Plan: Continue pravastatin 40mg HS (10) Diabetes mellitus Status: Chronic Plan: Hold home metformin, LSSI, Accu-Cheks per protocol (11) Nutrition, metabolism, and development symptoms Status: Acute Plan: Fluids: Maintenance fluids of normal saline at 120 mils per hour Electrolytes: Unremarkable, continue to monitor Nutrition: Diabetic diet DVT ppx: SCDs (no rx due to hematuria) GI ppx: not indicated (Symone Yan MD R1) Problem Qualifiers (1) Cellulitis: Qualified Code: L03.314 - Cellulitis of groin (2) Constipation: Qualified Code: K59.00 - Constipation, unspecified constipation type (3) Emphysema/COPD: Qualified Code: J43.9 - Pulmonary emphysema, unspecified emphysema type (4) HTN (hypertension): Qualified Code: I10 - Essential hypertension (5) Osteoarthritis: Qualified Code: M19.90 - Osteoarthritis, unspecified osteoarthritis type, unspecified site (6) Hyperlipemia: Qualified Code: E78.5 - Hyperlipidemia, unspecified hyperlipidemia type (7) Diabetes mellitus: Symone Yan MD R1 May 28, 2016 11:39 Andrew Mcelroy MD May 29, 2016 14:34 Status: Acute Plan: Diet: Diabetic diet Fluids: Maintenance fluids of normal saline at 120 mils per hour Electrolytes: Unremarkable, continue to monitor Degroot: Nursing order to replace Degroot and continue to monitor I/Os Symone Yan MD R1 May 28, 2016 11:39
[2016-05-28 12:00] VITALS: BP 129/61; PULSE 61; RESP 18; TEMP 97.6; O2SAT 95
[2016-05-28 16:49] VITALS: BP 132/75; PULSE 69; RESP 18; TEMP 96.5; O2SAT 99
[2016-05-28 20:20] VITALS: BP 111/43; PULSE 71; RESP 18; TEMP 98; O2SAT 98
--- NOTE | 2016-05-28 20:56 | PD.CONS ---
[facility] Service Urology Consult Requested By Reason for Consult Retention Primary Care Physician No Primary Care Physician Diagnosis: History of Present Illness 81yo male with history of HTN, emphysema, DM, CABG, and heart valve replacement now with urinary retention. Patient currently has an indwelling urethral catheter in place with decreased urine output and left groin cellulitis. Patient reports he does not feel as if he is producing enough urine per day. He states the urine has been clear but notes some pink tinged urine in the past. Patient recently had his goyal catheter exchanged due to concern for possible UTI. He does report difficulty in voiding prior to catheterization a few weeks ago at which point he went into acute urinary retention and catheter was placed. He has not been fully evaluated for his retention. No fever. Discomfort from the catheter. Review of Systems ROS Limitations: Clinical Condition Constitutional: DENIES: Fever Endocrine: DENIES: Polyuria Eyes: DENIES: Vision loss Ears, nose, mouth, throat: DENIES: Hearing loss Respiratory: DENIES: Apneas Cardiovascular: DENIES: Chest pain Gastrointestinal: DENIES: Abdominal pain Genitourinary: COMPLAINS OF: Hematuria Musculoskeletal: DENIES: Back pain Integumentary: COMPLAINS OF: Rash Hematologic/lymphatic: DENIES: Bruising Neurologic: DENIES: Headache Psychiatric: DENIES: Anxiety, Confusion Past Family Social History Past Medical History Emphysema Urinary retention Diabetes Heart valve replaced - currently not on anticoagulation, not seen by cardiology , unaware of which valve or type HTN HPLD Osteoarthritis Gastric ulcers CAD with CABG Past Surgical History Hip replacement Heart valve replacement Colonoscopy with polypectomy on last hospitalization CABG Reported Medications Reported Meds & Active Scripts Active Flomax (Tamsulosin HCl) 0.4 Mg Cap 0.4 Mg PO HS Reported Metformin (Metformin HCl) Unknown Strength Tab Unknown Dose PO BIDPC With meals Naprosyn (Naproxen) 500 Mg Tab 500 Mg PO BID PRN Metoclopramide (Metoclopramide HCl) 10 Mg Tab 10 Mg PO BID Pravastatin 40 Mg Tab 40 Mg PO HS Metoprolol Tartrate 25 Mg Tab 25 Mg PO BID Allergies: Coded Allergies: No Known Allergies (Verified , 05/27/16) Active Ordered Medications Current Medications Medications (Trade) Dose Ordered Sig/Vitaliy Route Start Time Stop Time Status Last Admin (NS Flush) 2 ml UNSCH PRN FLUSH 05/27/16 20:30 (NS Flush) 2 ml BID FLUSH 05/27/16 21:00 1/19/17 00:24 (Narcan Inj) 0.4 mg UNSCH PRN IV 05/27/16 20:30 (Reglan) 10 mg BID PO 05/27/16 21:00 05/28/16 09:19 (Lopressor) 25 mg BID PO 05/27/16 21:00 05/28/16 09:19 (Pravachol) 40 mg HS PO 05/27/16 21:00 05/28/16 00:23 (Flomax) 0.4 mg HS PO 05/27/16 21:00 05/28/16 00:23 (NS Flush) 2 ml UNSCH PRN FLUSH 05/27/16 21:45 (NS Flush) 2 ml BID FLUSH 05/27/16 21:45 (Tylenol) 650 mg Q4H PRN PO 05/27/16 21:45 (Dulcolax Supp) 10 mg DAILY PRN PA 05/27/16 21:45 (Milk Of [place] Linancy) 30 ml Q12H PRN PO 05/27/16 21:45 Dextrose 25 ml 25 ml UNSCH PRN IV PUSH 05/27/16 21:45 Pharmacy Profile Note 0 ml @ 0 mls/hr UNSCH OTHER 05/27/16 22:15 Cefepime HCl 2000 mg/Sodium Chloride 100 ml @ 200 mls/hr Q12H IV 05/27/16 23:00 05/28/16 12:55 Sodium Chloride 1,000 ml @ 120 mls/hr Q8H20M IV 05/27/16 22:45 05/28/16 15:25 (Vancomycin Inj/ NS 500 ml Inj) 515 ml @ 257.5 mls/ hr Q18H IV 05/28/16 00:00 05/28/16 19:25 Miscellaneous Information SPECIFIC LAB TO BE DA... ONCE ONCE XX 05/30/16 05:45 05/30/16 05:46 (Diflucan 200 Mg Premix Bag) 100 ml @ 100 mls/hr Q24H IV 05/28/16 02:00 05/28/16 03:39 (Vasotec Inj) 1.25 mg Q6H PRN IV 05/28/16 01:15 Family History Mother - stroke, unknown cardiac problems Father - unknown Social History Incarcerated for 8 years and released on 12/20/16, currently on probation. Staying in a Hotel on [address] (housing for citizens on probation) . Currently with no insurance and is unemployed. Alcohol - None, history of 3-4 drinks per day at the most approximately 8 years ago Smoke - <1/2 ppd for approximately 50 years Illicit - denies illicit drugs or marijuana Physical Exam Vital Signs Vital Signs Date Time Temp Pulse Resp B/P Pulse Ox O2 Delivery O2 Flow Rate FiO2 05/28/16 20:20 98.0 71 18 111/43 98 05/28/16 16:49 96.5 69 18 132/75 99 05/28/16 12:00 97.6 61 18 129/61 95 05/28/16 08:00 98.2 76 16 138/64 99 05/28/16 05:23 98.4 77 16 151/76 96 05/28/16 01:18 98.1 78 18 126/68 97 05/27/16 23:00 98.0 64 18 110/56 97 Physical Exam GENERAL: This is a well-nourished, well-developed patient, in no apparent distress. SKIN: Left thigh cellulitis HEAD: Atraumatic. Normocephalic. No temporal or scalp tenderness. EYES: Extraocular motions intact. No scleral icterus. No injection or drainage. ENT: Nose without bleeding, purulent drainage. Airway patent. NECK: Trachea midline. No JVD or lymphadenopathy. CARDIOVASCULAR: Normal pulses, extremities well perfused RESPIRATORY: Nonlabored, equal chest rise GASTROINTESTINAL: Abdomen nondistended. : Goyal catheter in place with clear yellow urine noted, no hematuria noted MUSCULOSKELETAL: Extremities without clubbing, cyanosis, or edema. NEUROLOGICAL: Awake and alert. Motor and sensory grossly within normal limits. Normal speech. Laboratory Laboratory Tests Test 05/28/16 05/28/16 01:45 06:00 Chlamydia trachomatis DNA NOT DETECTED (PCR) Neisseria gonorrhoeae DNA NOT DETECTED (PCR) White Blood Count 8.2 Red Blood Count 3.71 Hemoglobin 10.6 Hematocrit 31.4 Mean Corpuscular Volume 84.5 Mean Corpuscular Hemoglobin 28.5 Mean Corpuscular Hemoglobin 33.7 Concent Red Cell Distribution Width 14.5 Platelet Count 273 Mean Platelet Volume 9.8 Neutrophils (%) (Auto) 61.7 Lymphocytes (%) (Auto) 23.5 Monocytes (%) (Auto) 13.0 Eosinophils (%) (Auto) 1.3 Basophils (%) (Auto) 0.5 Neutrophils # (Auto) 5.0 Lymphocytes # (Auto) 1.9 Monocytes # (Auto) 1.1 Eosinophils # (Auto) 0.1 Basophils # (Auto) 0.0 CBC Comment DIFF FINAL Differential Comment Sodium Level 135 Potassium Level 4.2 Chloride Level 105 Carbon Dioxide Level 21.4 Anion Gap 9 Blood Urea Nitrogen 9 Creatinine 0.79 Estimat Glomerular Filtration 95 Rate Random Glucose 81 Calcium Level 8.1 Total Bilirubin 0.3 Aspartate Amino Transf 17 (AST/SGOT) Alanine Aminotransferase 20 (ALT/SGPT) Alkaline Phosphatase 64 Total Protein 5.8 Albumin 2.5 Date/Time Procedure Status Source Growth 05/27/16 21:30 Gram Stain - Final Resulted Wound Skin 05/27/16 21:30 Wound Culture - Preliminary Resulted Wound Skin IMMATURE GROWTH - REINCUBATE 05/27/16 17:05 Aerobic Blood Culture - Preliminary Resulted Blood Peripheral NO GROWTH IN 1 DAY 05/27/16 17:05 Anaerobic Blood Culture - Preliminary Resulted Blood Peripheral NO GROWTH IN 1 DAY 05/27/16 17:00 Urine Culture - Preliminary Resulted Urine Catheterized Urine Becky Albicans Result Diagram: 05/28/16 0600 05/28/16 0600 Imaging Last 72 hours Impressions Abdomen/Pelvis CT 05/27/16 0000 Signed Impressions: Service Date/Time: Friday, May 27, 2016 22:11 - CONCLUSION: 1. Bladder wall thickening. 2. Indeterminant renal lesion seen more notably along the lower pole left kidney measuring 1.5 cm. This could be related to a complex cyst however a solid lesion cannot be excluded. This is unchanged from prior studies. 3. Bilateral renal cysts. 4. Hiatal hernia and wall thickening within the stomach. Endoscopy may be warranted. Tim Peck MD Assessment and Plan Problem List: (1) UTI (urinary tract infection) ICD Code: N39.0 Status: Acute (2) Goyal catheter in place ICD Code: Z92.89 Status: Acute Assessment and Plan -CT images reviewed with bladder wall thickening noted. this may be attributed to infection vs indwelling urethral catheter -Left small renal lesion. Unclear if malignant potential. Will need further evaluation upon follow-up -Recommend maintaining goyal catheter in place with close urology follow-up for evaluation with cystoscopy and potentially urodynamic study to identify cause of his retention -Continue Flomax upon discharge -Follow-up with urology after discharge for voiding trial and further evaluation Problem Qualifiers (1) UTI (urinary tract infection): Qualified Code: N39.0 - Urinary tract infection with hematuria, site unspecified Omega Rodgers MD May 28, 2016 20:56
--- NOTE | 2016-05-28 21:13 | EKG ---
Date Performed: 05/27/2016 Time Performed: 17:03:09 PTAGE: 81 years EKG: Sinus rhythm WITH FIRST DEGREE AV BLOCK PROBABLE INFERIOR MYOCARDIAL INFARCTION MODERATE T-WAVE ABNORMALITY, CONS IDER LATERAL ISCHEMIA ABNORMAL ECG PREVIOUS TRACING : 05/14/2016 05.50 DOCTOR: Brice Norton Interpretating Date/Time 05/28/2016 21:06:05
[2016-05-29 00:13] VITALS: BP 125/77; PULSE 67; RESP 18; TEMP 98; O2SAT 97
[2016-05-29] MEDS: FLUCONAZOLE 200 MG PREMIX BAG 100 ML IV SCH (02:31)
[2016-05-29 04:00] VITALS: BP 142/68; PULSE 68; RESP 18; TEMP 98.1; O2SAT 98
[2016-05-29] MEDS: SODIUM CHLOR 0.9% 1000 ML INJ 1,000 ML IV SCH (04:53)
[2016-05-29 07:00] VITALS: BP 136/79; PULSE 74; RESP 18; TEMP 97.6; O2SAT 95
[2016-05-29] MEDS: INSULIN ASPART SUPPLEMENTAL SCALE SQ SCH ×2 (07:00→11:00)
[2016-05-29 07:49] LABS: HEMATOCRIT 30.8 % (39.0-51.0); MEAN CELL VOLUME 84.6 FL (80.0-100.0); MEAN CORPUSCULAR HEMOGLOBIN 27.9 PG (27.0-34.0); PLATELET COUNT 279 TH/MM3 (150-450); RED BLOOD COUNT 3.64 MIL/MM3 (4.50-5.90); RED CELL DISTRIBUTION WIDTH 14.5 % (11.6-17.2); REVIEW FLAG FINAL; WHITE BLOOD COUNT 9.8 TH/MM3 (4.0-11.0)
[2016-05-29 08:15] LABS: BICARBONATE 20.3 MEQ/L (21.0-32.0); POTASSIUM 4.3 MEQ/L (3.5-5.1)
[2016-05-29] MEDS: SODIUM CHLORIDE 0.9% FLUSH 5 ML FLUSH FLUSH SCH ×2 (09:00)
[2016-05-29] MEDS: METOCLOPRAMIDE HCL 10 MG TAB PO SCH (09:40)
[2016-05-29] MEDS: METOPROLOL TARTRATE 25 MG TAB PO SCH (09:40)
--- NOTE | 2016-05-29 10:04 | HHI.FPPN ---
Subjective Remarks No acute issues overnight. Vitals are stable, patient remains afebrile. He denies any chest pain, fever, chills, nausea or vomiting. He has noticed some improvement in his groin rash. He is tolerating by mouth. Objective Vitals Vital Signs Date Time Temp Pulse Resp B/P Pulse Ox O2 Delivery O2 Flow Rate FiO2 05/29/16 07:00 97.6 74 18 136/79 95 05/29/16 04:00 98.1 68 18 142/68 98 05/29/16 00:13 98.0 67 18 125/77 97 05/28/16 20:20 98.0 71 18 111/43 98 05/28/16 16:49 96.5 69 18 132/75 99 05/28/16 12:00 97.6 61 18 129/61 95 I/O 05/28/16 05/28/16 05/28/16 05/29/16 05/29/16 05/29/16 07:00 15:00 23:00 07:00 15:00 23:00 Intake Total 240 ml 2330 ml Output Total 850 ml 2200 ml 1000 ml Balance -610 ml 130 ml -1000 ml Intake Oral 240 ml 1130 ml IV Total 1200 ml Output Urine Total 850 ml 2200 ml 1000 ml # Voids 2 1 # Bowel Movements 1 2 Result Diagram: 05/29/16 0558 05/29/16 0558 Imaging Last Impressions Abdomen/Pelvis CT 05/27/16 0000 Signed Impressions: Service Date/Time: Friday, May 27, 2016 22:11 - CONCLUSION: 1. Bladder wall thickening. 2. Indeterminant renal lesion seen more notably along the lower pole left kidney measuring 1.5 cm. This could be related to a complex cyst however a solid lesion cannot be excluded. This is unchanged from prior studies. 3. Bilateral renal cysts. 4. Hiatal hernia and wall thickening within the stomach. Endoscopy may be warranted. Tim Peck MD Objective Remarks CONST: Thin male in NAD. Lying in bed comfortably. DERM: Warm and dry HEENT: PERRL. moist mucous membranes. CV: RRR. No murmurs or gallops. RESP: Clear to auscultation bilaterally. No wheezes, rales, or rhonchi. GI: NTND. +BS : Uncircumcised penis. 2cm circular abrasion on R lateral foreskin. Urethral meatus erythematous, TTP, draining mucopurulent fluid, less than previous exam. Scrotum erythematous R medial groin from scrotum to groin- erythematous, warm, skin breakdown. Also draining serosanguineous fluid. Erythema improving from prior exam. Perineum not involved. Denies suprapubic tenderness. MSK: Moves all four limbs against gravity. NEURO: Motor and sensory function grossly intact. PSYCH: Slow speech, but appropriate. Urinary Catheter: Yes Assessment to: Continue Goyal insert reason: Obstruction/Retention Date of Insertion: May 27, 2016 A/P Assessment and Plan 81y male w HTN, DM2, and recent hospitalization for urosepsis admitted for complicated cystitis with hematuria. Discharge Planning Anticipate discharge today pending urine culture results. dw Dr. Mcelroy and Dr. Yan Problem List: (1) Complicated UTI (urinary tract infection) Status: Acute Plan: Per U/A, presumed fungal UTI +/- bacteria. Urine culture growing becky albicans. Recently hospitalized Apr 2016 for urinary retention and constipation- d/c home w Goyal. Did not follow up with urology secondary to insurance issues. Leukocytosis has resolved, a short remains afebrile S/p Goyal change 05/27/16 GC, chlam negative CT abd/pelvis: Hiatal hernia. Bladder and stomach wall thickening. Renal lesion L kidney (complex cyst vs solid mass) 1.5 cm, unchanged from previous, as well as b/l renal cysts Plan -Urology consulted- Recommend maintaining goyal catheter in place with close urology follow-up for evaluation with cystoscopy and potentially urodynamic study to identify cause of his retention. Follow-up with urology after discharge for voiding trial and further evaluation. -Broad antibiotic coverage. Will follow urine culture, DC antibiotics today if no bacteria present. -Cefepime (05/27 - ) -Vanc 1.5g BID (05/27- ) + pharm consult - Transition from Fluconazole 200mg IV daily (05/27-05/29) to Fluconazole 200mg PO daily (to complete 2 weeks) -Blood culture (05/27)- NG1D -Urine culture (05/27)- Becky albicans -Wound culture (05/27)- immature growth -Tylenol PRN fever or pain (1-5) -Ibuprofen 600mg q4h pain (6-10) (2) Skin irritation Status: Acute Plan: Right groin skin irritation improving with barrier ointment. Patient to apply to skin regularly. (3) Constipation Status: Acute Plan: Hospitalized Apr 2016 for constipation. S/p colonoscopy with polypectomy. Reports incomplete evacuation of bowels with diarrhea. Continue home Reglan 10 mg BID Magnesium hydroxide 30 mg BID PRN Dulcolax suppository 10mg daily PRN constipation (4) Emphysema/COPD Status: Chronic Plan: Reported hx emphysema, not on medical management DuoNeb 1 amp q6h PRN SOB/Wheezing (5) HTN (hypertension) Status: Chronic Plan: Continue home metoprolol 25mg BID (6) Hyperlipemia Status: Chronic Plan: Continue pravastatin 40mg HS (7) Diabetes mellitus Status: Chronic Plan: Hold home metformin, LSSI, Accu-Cheks per protocol (8) Nutrition, metabolism, and development symptoms Status: Acute Plan: Fluids: DC fluids Electrolytes: wnl, continue to monitor Nutrition: Diabetic diet DVT ppx: SCDs (no rx due to hematuria) Problem Qualifiers (1) Constipation: Qualified Code: K59.00 - Constipation, unspecified constipation type (2) Emphysema/COPD: Qualified Code: J43.9 - Pulmonary emphysema, unspecified emphysema type (3) HTN (hypertension): Qualified Code: I10 - Essential hypertension (4) Hyperlipemia: Qualified Code: E78.5 - Hyperlipidemia, unspecified hyperlipidemia type (5) Diabetes mellitus: Roberta Jefferson MD R2 May 29, 2016 10:04
[2016-05-29 11:05] VITALS: BP 120/63; PULSE 65; RESP 18; TEMP 97.5; O2SAT 97
[2016-05-29] MEDS ORDERED: FLUC200T2 PO (11:06)
--- NOTE | 2016-05-29 11:07 | HHI.DCPOC ---
Discharge Care Plan Diagnosis: (1) Complicated UTI (urinary tract infection) Goals to Promote Your Health * To prevent worsening of your condition and complications * To maintain your health at the optimal level Directions to Meet Your Goals Take your medications as prescribed Follow your dietary instruction Follow activity as directed Keep your appointments as scheduled Take your immunizations and boosters as scheduled If your symptoms worsen call your PCP, if no PCP go to Urgent Care Center or Emergency Room Smoking is Dangerous to Your Health. Avoid second hand smoke Call the 24-hour hour crisis hotline for domestic abuse at Roberta Jefferson MD R2 May 29, 2016 11:07
[2016-05-29] MEDS: CEFEPIME INJ 2,000 MG in SODIUM CHLORIDE 0.9% INJ 100 ML IV SCH (11:09)
[2016-05-29] MEDS: VANCOMYCIN 1,500 MG/NS 500 ML IV SCH ×2 (12:00)
[2016-05-29 15:57] VITALS: BP 151/70; PULSE 61; RESP 18; TEMP 98.8; O2SAT 95
[2016-05-30] MEDS ORDERED: PHARMACY ORDERED LAB XX ONE (05:45)
== END 2016-05-29 17:15 | disposition home or self-care (01) ==
LOC: NEPE 13:31 → INTOOBSV 19:12 → NEDA 19:12 → NEPGCP 21:43
PROVIDERS: ADMIT Family Medicine; ATTEND Family Medicine
DX: N39.0 Urinary tract infection, site not specified (principal); J44.9 Chronic obstructive pulmonary disease, unspecified; R06.02 Shortness of breath; R05 Cough; M19.90 Unspecified osteoarthritis, unspecified site; E78.00 Pure hypercholesterolemia, unspecified; R07.9 Chest pain, unspecified; E11.9 Type 2 diabetes mellitus without complications; R13.10 Dysphagia, unspecified; K21.9 Gastro-esophageal reflux disease without esophagitis; K44.9 Diaphragmatic hernia without obstruction or gangrene; I10 Essential (primary) hypertension; I25.2 Old myocardial infarction; Z87.11 Personal history of peptic ulcer disease; F17.210 Nicotine dependence, cigarettes, uncomplicated; Z79.84 Long term (current) use of oral hypoglycemic drugs; Z79.899 Other long term (current) drug therapy; R00.0 Tachycardia, unspecified; A41.9 Sepsis, unspecified organism; Z95.1 Presence of aortocoronary bypass graft; Z95.2 Presence of prosthetic heart valve; L29.9 Pruritus, unspecified; N28.1 Cyst of kidney, acquired; L03.314 Cellulitis of groin; K59.00 Constipation, unspecified; E78.5 Hyperlipidemia, unspecified; Z92.89 Personal history of other medical treatment; I44.0 Atrioventricular block, first degree; B37.9 Candidiasis, unspecified; B95.7 Other staphylococcus as the cause of diseases classified elsewhere
CPT/HCPCS: 71010; 74177; 80048; 80053; 81001; 82948; 83605; 84484; 85025; 85027; 86403; 87040; 87070; 87077; 87086; 87186; 87205; 87491; 87591; 93005; 96374; 96375; 99285; G0378; J0692; J0696; J1450; J1885; J3370; J7030; J7040; Q9967